=== PATIENT | male | born 1970 | race Caucasian/White ===

== ENCOUNTER 2020-08-05 10:09 | Inpatient (IN) ==
[2020-08-05] MEDS ORDERED: 0.9 % SODIUM CHLORIDE 1,000 ML IV ONE (10:15)
[2020-08-05] MEDS ORDERED: PIPERACILLIN SODIUM/TAZOBACTAM 3.375 GM in DEXTROSE 5% IN WATER 50 ML IV ONE (11:12)
[2020-08-05 11:36] LABS: Basophils # (Auto) 0.02 K/mcL (0.00-0.30); Basophils % (Auto) 0.1 % (0.0-2.0); Eosinophils # (Auto) 0.01 K/mcL (0.00-0.70); Eosinophils % (Auto) 0.1 % (0.0-7.0); Granulocytes % (Auto) 92.1 % (38.0-78.0); Hematocrit 31.4 % (40.1-51.0); Lymphocytes # (Auto) 0.88 K/mcL (1.50-4.80); Lymphocytes % (Auto) 4.5 % (15.5-49.0); Mean Cell Volume 84.9 fL (80.0-100.0); Mean Corpuscular HGB Conc 28.7 g/dL (31.0-36.0); Mean Platelet Volume 9.9 fL (7.4-10.4); Monocytes # (Auto) 0.62 K/mcL (0.10-0.90); Monocytes % (Auto) 3.2 % (1.0-12.0); Platelet Count 511 K/mcL (140-440); Red Cell Distribution Width 19.4 % (11.5-14.5); WBC 19.6 K/mcL (4.50-11.00)
--- NOTE | 2020-08-05 11:36 | Cat Scan Report ---
CLINICAL INFORMATION: ,. History metastatic renal cell carcinoma craniotomy resected solitary metastasis the posterior left parietal lobe. COMPARISON: None. TECHNIQUE: 2.5 mm helical slices were obtained in the skull base to vertex. Following reconstruction, axial reformatted images were reviewed at bone and parenchymal windows. The exam was performed using radiation dose optimization techniques including, but not limited to, automated exposure control, adjustment of the mA and/or kV according to patient size and use of iterative reconstruction technique. FINDINGS: The ventricles, sulci, fissures, and cisterns are normal in size and configuration for age. No extra-axial fluid collections are identified. Left parietal craniotomy changes noted with a 4 cm low-attenuation region in the left parietal lobe. On the basis of noncontrast imaging, this could represent either encephalomalacia or edema. There is no intracerebral hemorrhage, mass effect edema or other acute posttraumatic change. Bone windows show no osseous abnormality. IMPRESSION: Left frontal craniotomy changes with a 4 cm low-attenuation region in the left parietal region presumably representing postsurgical encephalomalacia. There is no intracerebral hemorrhage or other acute posttraumatic change. If there is concern for recurrent cerebral metastases, suggest contrast enhanced head CT. Interpreted and Authenticated by: Norman Torres 08/05/20
--- NOTE | 2020-08-05 11:36 | Emergency Department Note ---
Fall HPI General Chief Complaint: Fall Stated Complaint: Fall, hit head Time Seen by Provider: 08/05/20 10:15 Source: patient and family Mode of arrival: wheelchair Limitations: altered mental status (confusion at times. Has a hard time finishing thoughts) History of Present Illness HPI Narrative: Narrative: 49-year-old male presents with general weakness, and confusion. He was seen here last night. He is a stage IV kidney cancer patient and has a team of providers at the cancer treatment Center [facility] in [place]. They sent him to the ER due to dehydration when his creatinine and BUN were elevated last night. Family also notes he is had progressing fusion over the last couple of weeks. He did have a brain tumor that was removed back on November 122018. He once in a while has some confusion but nothing like he has had in the last couple weeks and mom is with him and states confusion seems to be much worse the last 24 hours and especially this morning. He was evaluated and treated last night for dehydration. He was feeling better but when he got home he went to get up to go the bathroom and he is not sure if he got dizzy or what happened but he fell. He did hit his head but did not lose consciousness. He denies any headache now. No neck or back pain. States he does generally feel weak and when he gets up to go to the bathroom or do something his leg shakes bad, especially the left one. He states this is not new and has been going on for a long time. Mom feels like something is going on due to the increased confusion and increased weakness. Labs were reviewed from last night. No home treatments. Related Data Home Medications Medication Instructions Recorded Confirmed coenzyme Q10 100 mg capsule 100 mg PO QDAY 12/31/19 08/04/20 gabapentin 300 mg capsule 300 mg PO QHS 12/31/19 08/04/20 hydromorphone 4 mg tablet 4 mg PO Q6H PRN 12/31/19 08/04/20 methocarbamol 750 mg tablet 750 mg PO TID 12/31/19 08/04/20 rivaroxaban 20 mg tablet 20 mg PO QDAY 12/31/19 08/04/20 axitinib 5 mg tablet 5 mg PO BID tab 07/08/20 08/04/20 escitalopram oxalate 5 mg tablet 5 mg PO QDAY tab 07/08/20 08/04/20 omeprazole 20 mg capsule,delayed 20 mg PO QDAY cap 07/08/20 08/04/20 release Previous Rx's Medication Instructions Recorded metformin 500 mg tablet,extended 500 mg PO BID #180 tab 12/31/19 release 24 hr sitagliptin 100 mg tablet 100 mg PO QDAY #90 tab 06/18/20 Allergies Allergy/AdvReac Type Severity Reaction Status Date / Time No Known Drug Allergies Allergy Verified 08/05/20 10:09 Review of Systems ROS ROS Narrative: Narrative: All systems ED: reviewed and negative except as stated. PFSH Narrative Patient History Narrative: Narrative: Medical/Surgical/Family History All Active Problems (Updated 08/05/20 @ 12:24 by MECHELLE Irwin) Hypercalcemia of malignancy (Acute) Dehydration (Acute) Light-headedness (Acute) Nausea and vomiting (Acute) Acute pneumonia (Acute) Confusion (Acute) Cancer of kidney (Acute) Generalized weakness (Acute) Renal cell carcinoma (Acute) Chest pain in adult (Acute) Attempted suicide (Chronic) Dyslipidemia (Chronic) Nicotine dependence (Chronic) Blood in urine (Chronic) Shortness of breath (Chronic) Hemoptysis (Chronic) Hypercalcemia (Chronic) Microalbuminuria (Chronic) Diabetic peripheral neuropathy (Chronic) Venous obstruction (Chronic) Lung mass (Chronic) Abdominal pain (Chronic) Hand tingling (Chronic) Neck pain (Chronic) Other benign neoplasm of skin of trunk (Chronic) Lentigo (Chronic) Seborrheic keratosis (Chronic) Skin tag (Chronic) Urinary urgency (Chronic) Leg pain, right (Chronic) Contusion of right thigh (Chronic) Metastatic renal cell carcinoma (Chronic) Gross hematuria (Chronic) 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) Nodule of upper lobe of right lung (Chronic) Splenomegaly (Chronic) Hydronephrosis of right kidney (Chronic) Adrenal nodule (Chronic) Nodule of lower lobe of left lung (Chronic) Right renal mass (Chronic 06/19/18) Hearing loss in right ear (Chronic) Heartburn (Chronic) Obesity, morbid (Chronic) Hearing loss (Chronic) Essential hypertension, benign (Chronic) Hyperlipidemia (Chronic) Moderate major depression (Chronic) Other testicular hypofunction (Chronic) Pulmonary embolism (Chronic) Nasal congestion (Chronic) Nasal polyp (Chronic) Eustachian tube disorder (Chronic) Nasal septal perforation (Chronic) Vasomotor rhinitis (Chronic) Diabetes mellitus type II, uncontrolled (Chronic) Metastatic renal cell carcinoma to brain (Chronic) Metastatic renal cell carcinoma to lung (Chronic) Cancer treatment started (Chronic ~06/2018) Type 2 diabetes mellitus (Chronic ~2009) Renal cell carcinoma (Chronic ~06/2018) Medical History Abdominal pain (Chronic) Adrenal nodule (Chronic) Left 1.6cm with retroperitoneal adenopathy Attempted suicide (Chronic) Blood in urine (Chronic) Cancer treatment started (Chronic ~06/2018) Contusion of right thigh (Chronic) Diabetes mellitus type II, uncontrolled (Chronic) Diabetic peripheral neuropathy (Chronic) Dyslipidemia (Chronic) Essential hypertension, benign (Chronic) Eustachian tube disorder (Chronic) Gross hematuria (Chronic) Hand tingling (Chronic) Hearing loss (Chronic) Hearing loss in right ear (Chronic) Heartburn (Chronic) Hemoptysis (Chronic) Hydronephrosis of right kidney (Chronic) Hypercalcemia (Chronic) Hyperlipidemia (Chronic) Leg pain, right (Chronic) Lentigo (Chronic) Lung mass (Chronic) Metastatic renal cell carcinoma (Chronic) Microalbuminuria (Chronic) Moderate major depression (Chronic) Nasal congestion (Chronic) Nasal polyp (Chronic) Nasal septal perforation (Chronic) Neck pain (Chronic) Nicotine dependence (Chronic) Nodule of lower lobe of left lung (Chronic) 2 Nodule of upper lobe of right lung (Chronic) Obesity, morbid (Chronic) Other benign neoplasm of skin of trunk (Chronic) Other testicular hypofunction (Chronic) Pulmonary embolism (Chronic) Renal cell carcinoma (Chronic ~06/2018) Right renal mass (Chronic 06/19/18) Very large right sided renal mas, 15 x 12 x 13 cm Seborrheic keratosis (Chronic) Shortness of breath (Chronic) Skin tag (Chronic) Splenomegaly (Chronic) 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) Type 2 diabetes mellitus (Chronic ~2009) Urinary urgency (Chronic) Vasomotor rhinitis (Chronic) Venous obstruction (Chronic) Surgical History History of brain surgery (Chronic ~10/2019) for tumor History of lung biopsy (Chronic ~06/2018) History of oral surgery (Chronic) Impacted tooth removal History of placement of ear tubes (Chronic) History of surgical procedure (Chronic ~09/2019) Power Port Placement History of toe surgery (Chronic) Right great toe ingrown toenail-biopsy Family History Father Cancer High blood pressure Emphysema, unspecified Bladder cancer Obesity Family/Other Cancer All Grandparents Diabetes Maternal cousin Mother High blood pressure Grandmother Ovarian cancer Paternal Stomach cancer Paternal Diabetes Maternal great great Grandfather Bone cancer Paternal Brain cancer Maternal Esophageal cancer Maternal Other Family history of malignant neoplasm of prostate Social History Smoking Status: Current every day smoker Alcohol Intake Frequency: does not drink Substance Use: does not use Exam Narrative Narrative: Narrative: General Limitations: altered mental status (confusion at times. Has a hard time finishing thoughts) General appearance: Present alert and other (Pale) Head Head: Present atraumatic and normocephalic Eye Eye: Present normal appearance and PERRL; Absent conjunctival injection ENT ENT: Present mucous membranes moist (Slightly dry), TM's normal bilaterally and normal external ear exam Neck Neck: Present normal inspection, full ROM and trachea midline; Absent tenderness Chest Chest: Present symmetric chest wall rise Respiratory Respiratory: Present normal lung sounds bilaterally and decreased breath sounds (Slightly diminished in bases bilaterally otherwise clear throughout); Absent respiratory distress, rales/crackles, wheezes, stridor and accessory muscle use Cardiovascular Cardiovascular: Present regular rate and normal heart sounds Adbominal Abdominal: Present soft and normal bowel sounds; Absent distention and tenderness Neurological Neurological: Present alert and oriented X3 (He is alert and oriented x3 however he does get confused at times and has a hard time finishing thoughts or senten virgen frequently. Mom states this is not unusual however it is much worse than the his baseline in the last 24 hours) Psychiatric Psychiatric: Present normal affect and normal mood Skin Skin: Present warm (WNL), intact and other (Pale) Course Course Course Narrative: @ 1310, Dr. Jernigan, hospitalist, agrees to accept this patient. Vital Signs Vital signs: Vital Signs Temperature 97.5 F 08/05/20 10:10 Pulse Rate 83 08/05/20 10:10 Respiratory Rate 15 08/05/20 10:10 Blood Pressure 119/75 08/05/20 10:10 Pulse Oximetry (%) 99 08/05/20 10:10 Temperature 97.5 F 08/05/20 10:10 Pulse Rate 80 08/05/20 13:31 Respiratory Rate 24 H 08/05/20 13:31 Blood Pressure 118/71 08/05/20 13:31 Pulse Oximetry (%) 96 08/05/20 13:31 MDM MDM Narrative Medical decision making narrative: Narrative: He did have elevated white blood cell count of greater than 14,000. Procalcitonin of 1.29. Radiologist read the chest x-ray this morning and see some small infiltrates in the left and going to hydrate the patient and recheck labs but in the meantime we are to start some IV antibiotics. He does have increasing weakness with the elevated white count, elevated procalcitonin, and increasing weakness and confusion. Also ordered a head CT due to the increased confusion that is progressing and much worse over the last 24 hours in addition to the fall with striking his head. He denies being on any blood thinners. I also do have a call into the cancer treatment centers of [facility] to his care team. At 1220, I did speak with the patient's care team at [facility] in [place]. His assigned provider is Dr. Watts [phone]. Discussed the case with him, he agrees with current plan of care with IV antibiotics for pneumonia and treatment here for what is going on currently. He does state that the p atient is supposed to have a CT of the chest abdomen and pelvis without contrast as well as a brain MRI with and without contrast within the next 2 weeks prior to coming to them again for a follow-up. He does have a history of mets to the brain. States they were doing these for restaging and further plan of treatment. At 1220 we did put in a bed request here for admission for pneumonia, confusion, weakness, stage IV kidney cancer with metastasis to the brain. PT is a DNR and does not want CPR performed if heart stopped or he stopped breathing. He does want all treatment to prolong life as far as treatment and interventions for infection, cancer, etc. Lab Data Lab results reviewed: Yes I reviewed the patient's lab results. Result diagrams: 08/05/20 10:58 08/05/20 10:58 Labs: Lab Results 08/05/20 08/05/20 08/05/20 Range/Units 10:58 10:58 10:58 WBC 19.6 H (4.50-11.00) K/mcL RBC 3.70 L (4.63-6.08) M/mcL Hgb 9.0 L (13.7-17.5) g/dL Hct 31.4 L (40.1-51.0) % MCV 84.9 (80.0-100.0) fL MCH 24.3 L (26.0-34.0) pg MCHC 28.7 L (31.0-36.0) g/dL RDW 19.4 H (11.5-14.5) % Plt Count 511 H (140-440) K/mcL MPV 9.9 (7.4-10.4) fL Gran % 92.1 H (38.0-78.0) % Lymph % (Auto) 4.5 L (15.5-49.0) % [place] % (Auto) 3.2 (1.0-12.0) % Eos % (Auto) 0.1 (0.0-7.0) % Baso % (Auto) 0.1 (0.0-2.0) % Gran # 18.11 H (1.80-8.00) K/mcL Lymph # (Auto) 0.88 L (1.50-4.80) K/mcL [place] # (Auto) 0.62 (0.10-0.90) K/mcL Eos # (Auto) 0.01 (0.00-0.70) K/mcL Baso # (Auto) 0.02 (0.00-0.30) K/mcL VBG Lactic Acid (0.5-2.0) mmol/L Sodium 134 (133-145) mmol/L Potassium 4.4 (3.3-5.1) mmol/L Chloride 98 (96-108) mmol/L Carbon Dioxide 22 (22-30) mmol/L Anion Gap 14.0 (8-16) BUN 19 (6-20) mg/dl Creatinine 1.8 H (0.7-1.2) mg/dl GFR Calculation 43 Glucose 180 H (70-105) mg/dL Calcium 12.4 H (8.6-10.4) mg/dl Phosphorus 3.5 (2.7-4.5) mg/dL Magnesium 2.5 (1.6-2.5) mg/dL Total Bilirubin 0.4 (0.0-1.0) mg/dL AST 16 (0-37) U/l ALT 10 (0-40) U/l Alkaline Phosphatase 157 H (39-117) U/L Total Protein 7.5 (5.9-8.4) gm/dL Albumin 2.8 L (3.2-5.2) gm/dL Globulin 4.7 H (2.2-3.7) gm/dL Albumin/Globulin Ratio 0.6 L (1.0-2.3) Procalcitonin 1.06 (<0.10) ng/mL 08/05/20 Range/Units 11:33 WBC (4.50-11.00) K/mcL RBC (4.63-6.08) M/mcL Hgb (13.7-17.5) g/dL Hct (40.1-51.0) % MCV (80.0-100.0) fL MCH (26.0-34.0) pg MCHC (31.0-36.0) g/dL RDW (11.5-14.5) % Plt Count (140-440) K/mcL MPV (7.4-10.4) fL Gran % (38.0-78.0) % Lymph % (Auto) (15.5-49.0) % [place] % (Auto) (1.0-12.0) % Eos % (Auto) (0.0-7.0) % Baso % (Auto) (0.0-2.0) % Gran # (1.80-8.00) K/mcL Lymph # (Auto) (1.50-4.80) K/mcL [place] # (Auto) (0.10-0.90) K/mcL Eos # (Auto) (0.00-0.70) K/mcL Baso # (Auto) (0.00-0.30) K/mcL VBG Lactic Acid 2.0 (0.5-2.0) mmol/L Sodium (133-145) mmol/L Potassium (3.3-5.1) mmol/L Chloride (96-108) mmol/L Carbon Dioxide (22-30) mmol/L Anion Gap (8-16) BUN (6-20) mg/dl Creatinine (0.7-1.2) mg/dl GFR Calculation Glucose (70-105) mg/dL Calcium (8.6-10.4) mg/dl Phosphorus (2.7-4.5) mg/dL Magnesium (1.6-2.5) mg/dL Total Bilirubin (0.0-1.0) mg/dL AST (0-37) U/l ALT (0-40) U/l Alkaline Phosphatase (39-117) U/L Total Protein (5.9-8.4) gm/dL Albumin (3.2-5.2) gm/dL Globulin (2.2-3.7) gm/dL Albumin/Globulin Ratio (1.0-2.3) Procalcitonin (<0.10) ng/mL Radiology Data Radiology results reviewed: Yes I reviewed the patient's radiology results. Discharge Plan Patient/Caregiver Discharge Instructions Pt seen by MONOGRAM TECHNICIAN/PA only: Yes Clinical Impression: Acute pneumonia, Confusion, Cancer of kidney, Generalized weakness Patient Disposition: Xfer As Inpt ([facility]) Condition: Fair Follow up with: Norman Kaiser DO [Primary Care Provider] - Prescriptions: No Action Januvia 100 mg tablet 100 mg PO QDAY Qty: 90 RF: 0 hydromorphone 4 mg tablet 4 mg PO Q6H PRN (Reason: Pain) RF: 0 methocarbamol 750 mg tablet 750 mg PO TID RF: 0 coenzyme Q10 100 mg capsule 100 mg PO QDAY RF: 0 gabapentin 300 mg capsule 300 mg PO QHS RF: 0 Xarelto 20 mg tablet 20 mg PO QDAY RF: 0 metformin 500 mg tablet extended release 24 hr 500 mg PO BID Qty: 180 RF: 3 Inlyta 5 mg tablet 5 mg PO BID RF: 0 omeprazole 20 mg capsule,delayed release(DR/EC) 20 mg PO QDAY RF: 0 escitalopram oxalate 5 mg tablet 5 mg PO QDAY RF: 0
[2020-08-05 11:57] LABS: ALT/SGPT 10 U/l (0-40); AST/SGOT 16 U/l (0-37); Albumin 2.8 gm/dL (3.2-5.2); Albumin/Globulin Ratio 0.6 (1.0-2.3); Alkaline Phosphatase 157 U/L (39-117); Bilirubin,Total 0.4 mg/dL (0.0-1.0); Blood Urea Nitrogen 19 mg/dl (6-20); Calcium 12.4 mg/dl (8.6-10.4); Carbon Dioxide 22 mmol/L (22-30); Chloride 98 mmol/L (96-108); Globulin 4.7 gm/dL (2.2-3.7); Glomerular Filtration Rate 43; Glucose 180 mg/dL (70-105); Phosphorous 3.5 mg/dL (2.7-4.5)
--- NOTE | 2020-08-05 13:28 | Internal Med History&Physical ---
HPI History of Present Illness Patient information: Note initiated : 08/05/20 at 1:19 pm Service Date, if different from initiated Date: [] Patient: Timi Amaral 49 y/o M admitted on for Fall, hit head. Chief Complaint: [] History of present illness: Mr. Amaral is a 49 year Who presented ED yesterday at the request of his cancer care center due to some labs that appear to show him being dehydrated. Went to the ED and received IV fluid. Was sent home. During middle night he went to go the bathroom and felt dizzy and lightheaded and fell. He denies loss of consciousness although he did hit his head. Was able to get up right away and get went to his bed. He and family called the cancer center in the morning they told to come to the ED. On evaluation the ED appear to be in acute kidney injury. And chest x-ray showed left lower lobe infiltrate. Lactate 2.0. An elevated white blood cell count. As well as procalcitonin. Does have a history of stage IV kidney cancer with mets to the brain. Had a brain surgery in October. Has not been on a recent chemo medication and is not felt well since then. He has had days where he is felt confused. Per family members and himself he was confused this morning. Seems to be cleared up at this time. This post to get follow-up CT chest abdomen pelvis and brain MRI in the next couple weeks prior to his appointment. Denies any coughing or shortness of breath at this time. Yesterday he felt normal although again has not felt great since the medication but no acute changes in how he fell yesterday as well as today. Just feels lightheaded if he gets up too fast. No headaches or vision changes. Review of Systems: Pertinent positives as above. Denies headache/fever/chills/nausea/vomiting/chest or abdominal pain/cough/dyspnea/diarrhea. Remaining 10 point review of system reviewed negative PFSH PFSH All Active Problems (Updated 08/05/20 @ 12:24 by MECHELLE Irwin) Hypercalcemia of malignancy (Acute) Dehydration (Acute) Light-headedness (Acute) Nausea and vomiting (Acute) Acute pneumonia (Acute) Confusion (Acute) Cancer of kidney (Acute) Generalized weakness (Acute) Renal cell carcinoma (Acute) Chest pain in adult (Acute) Attempted suicide (Chronic) Dyslipidemia (Chronic) Nicotine dependence (Chronic) Blood in urine (Chronic) Shortness of breath (Chronic) Hemoptysis (Chronic) Hypercalcemia (Chronic) Microalbuminuria (Chronic) Diabetic peripheral neuropathy (Chronic) Venous obstruction (Chronic) Lung mass (Chronic) Abdominal pain (Chronic) Hand tingling (Chronic) Neck pain (Chronic) Other benign neoplasm of skin of trunk (Chronic) Lentigo (Chronic) Seborrheic keratosis (Chronic) Skin tag (Chronic) Urinary urgency (Chronic) Leg pain, right (Chronic) Contusion of right thigh (Chronic) Metastatic renal cell carcinoma (Chronic) Gross hematuria (Chronic) 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) Nodule of upper lobe of right lung (Chronic) Splenomegaly (Chronic) Hydronephrosis of right kidney (Chronic) Adrenal nodule (Chronic) Nodule of lower lobe of left lung (Chronic) Right renal mass (Chronic 06/19/18) Hearing loss in right ear (Chronic) Heartburn (Chronic) Obesity, morbid (Chronic) Hearing loss (Chronic) Essential hypertension, benign (Chronic) Hyperlipidemia (Chronic) Moderate major depression (Chronic) Other testicular hypofunction (Chronic) Pulmonary embolism (Chronic) Nasal congestion (Chronic) Nasal polyp (Chronic) Eustachian tube disorder (Chronic) Nasal septal perforation (Chronic) Vasomotor rhinitis (Chronic) Diabetes mellitus type II, uncontrolled (Chronic) Metastatic renal cell carcinoma to brain (Chronic) Metastatic renal cell carcinoma to lung (Chronic) Cancer treatment started (Chronic ~06/2018) Type 2 diabetes mellitus (Chronic ~2009) Renal cell carcinoma (Chronic ~06/2018) Medical History Abdominal pain (Chronic) Adrenal nodule (Chronic) Left 1.6cm with retroperitoneal adenopathy Attempted suicide (Chronic) Blood in urine (Chronic) Cancer treatment started (Chronic ~06/2018) Contusion of right thigh (Chronic) Diabetes mellitus type II, uncontrolled (Chronic) Diabetic peripheral neuropathy (Chronic) Dyslipidemia (Chronic) Essential hypertension, benign (Chronic) Eustachian tube disorder (Chronic) Gross hematuria (Chronic) Hand tingling (Chronic) Hearing loss (Chronic) Hearing loss in right ear (Chronic) Heartburn (Chronic) Hemoptysis (Chronic) Hydronephrosis of right kidney (Chronic) Hypercalcemia (Chronic) Hyperlipidemia (Chronic) Leg pain, right (Chronic) Lentigo (Chronic) Lung mass (Chronic) Metastatic renal cell carcinoma (Chronic) Microalbuminuria (Chronic) Moderate major depression (Chronic) Nasal congestion (Chronic) Nasal polyp (Chronic) Nasal septal perforation (Chronic) Neck pain (Chronic) Nicotine dependence (Chronic) Nodule of lower lobe of left lung (Chronic) 2 Nodule of upper lobe of right lung (Chronic) Obesity, morbid (Chronic) Other benign neoplasm of skin of trunk (Chronic) Other testicular hypofunction (Chronic) Pulmonary embolism (Chronic) Renal cell carcinoma (Chronic ~06/2018) Right renal mass (Chronic 06/19/18) Very large right sided renal mas, 15 x 12 x 13 cm Seborrheic keratosis (Chronic) Shortness of breath (Chronic) Skin tag (Chronic) Splenomegaly (Chronic) 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) Type 2 diabetes mellitus (Chronic ~2009) Urinary urgency (Chronic) Vasomotor rhinitis (Chronic) Venous obstruction (Chronic) Surgical History History of brain surgery (Chronic ~10/2019) for tumor History of lung biopsy (Chronic ~06/2018) History of oral surgery (Chronic) Impacted tooth removal History of placement of ear tubes (Chronic) History of surgical procedure (Chronic ~09/2019) Power Port Placement History of toe surgery (Chronic) Right great toe ingrown toenail-biopsy Family History Father Cancer High blood pressure Emphysema, unspecified Bladder cancer Obesity Family/Other Cancer All Grandparents Diabetes Maternal cousin Mother High blood pressure Grandmother Ovarian cancer Paternal Stomach cancer Paternal Diabetes Maternal great great Grandfather Bone cancer Paternal Brain cancer Maternal Esophageal cancer Maternal Other Family history of malignant neoplasm of prostate Social History marital status: single smoking status: Current every day smoker alcohol intake frequency: does not drink substance use type: does not use MEDS/ALLERGIES Home Medications and Allergies Home Medications Medication Instructions Recorded Confirmed Type coenzyme Q10 100 mg capsule 100 mg PO QDAY 12/31/19 08/05/20 History gabapentin 300 mg capsule 300 mg PO QHS 12/31/19 08/05/20 History hydromorphone 4 mg tablet 4 mg PO Q6H PRN 12/31/19 08/05/20 History metformin 500 mg tablet,extended 500 mg PO BID #180 tab 12/31/19 08/05/20 Rx release 24 hr methocarbamol 750 mg tablet 750 mg PO TID 12/31/19 08/05/20 History rivaroxaban 20 mg tablet 20 mg PO QDAY 12/31/19 08/05/20 History sitagliptin 100 mg tablet 100 mg PO QDAY #90 tab 06/18/20 08/05/20 Rx axitinib 5 mg tablet 5 mg PO BID tab 07/08/20 08/05/20 History escitalopram oxalate 5 mg tablet 5 mg PO QDAY tab 07/08/20 08/05/20 History omeprazole 20 mg capsule,delayed 20 mg PO QDAY cap 07/08/20 08/05/20 History release Allergies Allergy/AdvReac Type Severity Reaction Status Date / Time No Known Drug Allergies Allergy Verified 08/05/20 10:09 EXAM Constitutional Vitals: Temp Pulse Resp BP Pulse Ox 97.5 F 80 25 H 110/72 96 08/05/20 10:10 08/05/20 12:46 08/05/20 12:46 08/05/20 12:46 08/05/20 12:46 Exam: General: Alert, Awake, No acute Distress Eyes/N/T: EOMI, PERRL, dry MM Head/Neck: neck supple, normocephalic atraumatic CV: RRR, No murmurs, normal s1/s2 Pulm: Mild left-sided rhonchi right clear , no wheezing Abd: soft, nontender, +BS x4 Ext: no clubbing/cyanosis/edema Neuro: Alert, no focal deficits, moves all extremities, CN 2-12 grossly intact, symmetrical strength b/l upper/lower, sensations intact b/l upper/lower Skin: warm/dry DATA Data Completed and Pending Labs: Labs from last 24 hours 08/05/20 08/05/20 08/05/20 11:33 10:58 10:58 WBC RBC Hgb Hct MCV MCH MCHC RDW Plt Count MPV Gran % Lymph % (Auto) [place] % (Auto) Eos % (Auto) Baso % (Auto) Gran # Lymph # (Auto) [place] # (Auto) Eos # (Auto) Baso # (Auto) VBG Lactic Acid 2.0 Sodium 134 Potassium 4.4 Chloride 98 Carbon Dioxide 22 Anion Gap 14.0 BUN 19 Creatinine 1.8 H GFR Calculation 43 Glucose 180 H Calcium 12.4 H Phosphorus 3.5 Magnesium 2.5 Total Bilirubin 0.4 AST 16 ALT 10 Alkaline Phosphatase 157 H Total Protein 7.5 Albumin 2.8 L Globulin 4.7 H Albumin/Globulin Ratio 0.6 L Procalcitonin 1.06 08/05/20 10:58 WBC 19.6 H RBC 3.70 L Hgb 9.0 L Hct 31.4 L MCV 84.9 MCH 24.3 L MCHC 28.7 L RDW 19.4 H Plt Count 511 H MPV 9.9 Gran % 92.1 H Lymph % (Auto) 4.5 L [place] % (Auto) 3.2 Eos % (Auto) 0.1 Baso % (Auto) 0.1 Gran # 18.11 H Lymph # (Auto) 0.88 L [place] # (Auto) 0.62 Eos # (Auto) 0.01 Baso # (Auto) 0.02 VBG Lactic Acid Sodium Potassium Chloride Carbon Dioxide Anion Gap BUN Creatinine GFR Calculation Glucose Calcium Phosphorus Magnesium Total Bilirubin AST ALT Alkaline Phosphatase Total Protein Albumin Globulin Albumin/Globulin Ratio Procalcitonin A/P Narrative A/P Narrative: A: *ABIOLA on CKD III: *PNA: -on room air *Volume depletion: *Hypercalcemia: volume depletion vs metastatic CA *Kidney cancer stage IV with mets to the brain: *Anemia, chronic: *Depression: *GERD: *Tobacco abuse: *DM: *Confusion: Intermittent -noncontrast CT brain no acute * P: -IVF -Monitor UOP and follow-up renal function and calcium -Pending BC/SC -UA pending -IV antibiotics -MRI brain to assess for brain mets -is supposed to get f/u ct c/a/p prior to appointment -SSI, hold metformin -PT/OT -Smoking cessation counseling -ppx: Lovenox/home PPI DNR Time Spent With Patient Time: Total time spent is greater than 50% in coordination of care (as documented) at patient's floor/unit and/or counseling patient:
[2020-08-05 15:21] LABS: Anisocytosis 1+ (NONE SEEN); Hypochromasia 2+ (NONE SEEN); Lymphocytes % 6 % (15-49); Monocytes % (Manual) 2 % (1-12); Platelet Estimate INCREASED (NORMAL); RBC Morphology ABNORMAL (NORMAL); Segmented Neutrophils % 92 % (38-78)
[2020-08-05] MEDS ORDERED: ACETAMINOPHEN 325 MG TABLET PO PRN (15:37)
[2020-08-05] MEDS ORDERED: DEXTROSE 31 GM ORAL.SUSP PO PRN (15:37)
[2020-08-05] MEDS ORDERED: POTASSIUM CHLORIDE 20 MEQ TABLET PO PRN ×2 (15:37)
[2020-08-05] MEDS ORDERED: DEXTROSE 50% 50 ML VIAL IV PRN (15:37)
[2020-08-05] MEDS ORDERED: IPRATROPIUM/ALBUTEROL 3 ML AMPUL.NEB NEB PRN (15:37)
[2020-08-05] MEDS ORDERED: POLYETHYLENE GLYCOL 3350 17 GM PACKET PO PRN (15:37)
[2020-08-05] MEDS ORDERED: SENNOSIDES 1 TABLET PO PRN (15:37)
[2020-08-05] MEDS ORDERED: MAGNESIUM SULFATE 2 GM/50 ML BAG IV PRN (15:37)
[2020-08-05] MEDS ORDERED: POTASSIUM CHLORIDE 40 MEQ in DEXTROSE 5% IN WATER 500 ML IV PRN (15:37)
[2020-08-05] MEDS ORDERED: METOCLOPRAMIDE 10 MG/2 ML VIAL IV PRN (15:37)
[2020-08-05] MEDS: 0.9 % SODIUM CHLORIDE 10 ML SYRINGE IV SCH ×2 (16:44→21:55)
[2020-08-05] MEDS: 0.9 % SODIUM CHLORIDE 1,000 ML IV SCH (16:44)
[2020-08-05] MEDS: INSULIN LISPRO 1 UNIT/0.01 ML UNIT SQ SCH ×2 (16:52→21:53)
[2020-08-05] MEDS: PIPERACILLIN SODIUM/TAZOBACTAM 3.375 GM in DEXTROSE 5% IN WATER 50 ML IV SCH (18:39)
[2020-08-05] MEDS: HYDROmorphone 2 MG TABLET PO PRN (21:54)
[2020-08-05] MEDS: DOCUSATE SODIUM 100 MG CAPSULE PO SCH (21:55)
[2020-08-05] MEDS: ONDANSETRON 4 MG/2 ML VIAL IV PRN (22:04)
[2020-08-06] MEDS: PIPERACILLIN SODIUM/TAZOBACTAM 3.375 GM in DEXTROSE 5% IN WATER 50 ML IV SCH ×5 (00:03→23:53)
[2020-08-06] MEDS: HYDROmorphone 2 MG TABLET PO PRN ×4 (04:38→23:53)
[2020-08-06] MEDS: 0.9 % SODIUM CHLORIDE 10 ML SYRINGE IV SCH ×3 (04:40→20:17)
[2020-08-06] MEDS: 0.9 % SODIUM CHLORIDE 1,000 ML IV SCH (04:40)
--- NOTE | 2020-08-06 07:11 | Internal Med Progress Note ---
SUBJECTIVE Subjective Patient information: Note initiated : 08/06/20 at 7:09 am Service Date, if different from initiated Date: [] Patient: Timi Amaral 49 y/o M admitted on 08/05/20 for Fall, hit head. Chief Complaint: [] Interval history: Leukocytosis improved.History of present illness: Mr. Amaral is a 49 year Who presented ED yesterday at the request of his cancer care center due to some labs that appear to show him being dehydrated. Went to the ED and received IV fluid. Was sent home. During middle night he went to go the bathroom and felt dizzy and lightheaded and fell. He denies loss of consciousness although he did hit his head. Was able to get up right away and get went to his bed. He and family called the cancer center in the morning they told to come to the ED. On evaluation the ED appear to be in acute kidney injury. And chest x-ray showed left lower lobe infiltrate. Lactate 2.0. An elevated white blood cell count. As well as procalcitonin. Does have a history of stage IV kidney cancer with mets to the brain. Had a brain surgery in October. Has not been on a recent chemo medication and is not felt well since then. He has had days where he is felt confused. Per family members and himself he was confused this morning. Seems to be cleared up at this time. This post to get follow-up CT chest abdomen pelvis and brain MRI in the next couple weeks prior to his appointment. Denies any coughing or shortness of breath at this time. Yesterday he felt normal although again has not felt great since the medication but no acute changes in how he fell yesterday as well as today. Just feels lightheaded if he gets up too fast. No headaches or vision changes. 08/06 Feeling a little better today. Has little bit of lower abdominal crampy pain but otherwise no complaints. Leukocytosis improved. Review of Systems: denies headache/fever/chills/nausea/vomiting/chest or abdominal pain/cough/dyspnea/diarrhea. Otherwise see above. Constitutional Vitals: Vital Signs Temp Pulse Resp BP Pulse Ox 97.9 F 73 20 122/76 98 08/06/20 04:33 08/06/20 04:33 08/06/20 04:33 08/06/20 04:33 08/06/20 04:33 Period Temp Pulse Resp BP Sys/Bah Pulse Ox Last 24 Hr 97.2 F-98.2 F 73-90 9-28 95-122/63-94 93-99 Intake and Output 08/05/20 08/06/20 08/06/20 21:59 05:59 13:59 Intake Total 50 1295 Output Total 1125 1025 Balance -1075 270 Weight 120.202 kg Intake & Output: Intake & Output 08/05/20 08/06/20 08/06/20 21:59 05:59 13:59 Intake Total 50 1295 Output Total 1125 1025 Balance -1075 270 Weight 120.202 kg Intake: IV 50 995 Sodium Chloride 0.9% 1,000 ml @ 895 75 mls/hr IV .[id number] MELISSA Rx#: [id number] Zosyn 3.375 gm In Dextrose 5% 50 100 in Water 50 ml @ 100 mls/hr IV Q6H MELISSA Rx#:[id number] Oral 300 Output: Void Amount 1125 1025 Other: Meal Dinner Percent of Meal Consumed 50% Feeding Ability Independent Urine Appearance Clear Clear Urine Color Bright Yellow Bright Yellow Urine Odor Normal Exam: General: Alert, Awake, Eyes/N/T: EOMI, Head/Neck: neck supple, CV: RRR, No murmurs, Pulm: Mild left-sided rhonchi right clear , no wheezing Abd: soft, nontender, +BS x4 Ext: no clubbing/cyanosis/edema Neuro: Alert, no focal deficits, moves all extremities, Skin: warm/dry OBJ DATA Labs CBC & Chem 7: 08/06/20 05:19 08/05/20 10:58 Labs: Abnormal Lab Results 08/05/20 08/05/20 08/05/20 10:58 10:58 10:58 WBC 19.6 H RBC 3.70 L Hgb 9.0 L Hct 31.4 L MCH 24.3 L MCHC 28.7 L RDW 19.4 H Plt Count 511 H Gran % 92.1 H Lymph % (Auto) 4.5 L Gran # 18.11 H Lymph # (Auto) 0.88 L Seg Neutrophils % 92 H Lymphocytes % 6 L Platelet Estimate Increased A Hypochromasia 2+ A Anisocytosis 1+ A Creatinine 1.8 H Glucose 180 H Calcium 12.4 H Alkaline Phosphatase 157 H Albumin 2.8 L Globulin 4.7 H Albumin/Globulin Ratio 0.6 L Meds: Medications Acetaminophen (Tylenol) 650 mg PO Q6HP PRN PRN Reason: PAIN/FEVER > 101 Albuterol/Ipratropium (Duoneb) 3 ml NEB Q4HP PRN PRN Reason: Shortness Of Breath Dextrose (Dextrose 50%) 0 ml IV UD PRN PRN Reason: Hypoglycemia Diagnostic Test (Pha) (Accu-Chek) 1 each FS [facility] COUNTS INCLUDE 234 BEDS AT THE [facility] Last Admin: 08/05/20 21:53 Dose: 1 each Documented by: Docusate Sodium (Colace) 100 mg PO BID COUNTS INCLUDE 234 BEDS AT THE [facility] Last Admin: 08/05/20 21:55 Dose: 100 mg Documented by: Enoxaparin Sodium (Lovenox) 40 mg SQ DAILY COUNTS INCLUDE 234 BEDS AT THE [facility] Glucose (Insta-Glucose) 15 gm PO PRN PRN PRN Reason: Hypoglycemia Hydromorphone HCl (Dilaudid) 4 mg PO Q6HP PRN; Protocol PRN Reason: Per Pain Protocol Last Admin: 08/06/20 04:38 Dose: 4 mg Documented by: Potassium Chloride 40 meq/ (Dextrose) 520 mls @ 130 mls/hr IV UD PRN PRN Reason: Potassium < 3 Magnesium Sulfate (Magnesium Sulfate) 2 gm in 50 mls @ 50 mls/hr IV UD PRN PRN Reason: Magnesium </= 1.6 Sodium Chloride (Sodium Chloride 0.9%) 1,000 mls @ 75 mls/hr IV .[id number] COUNTS INCLUDE 234 BEDS AT THE [facility] Stop: 08/06/20 18:16 Last Admin: 08/06/20 04:40 Dose: 75 mls/hr Documented by: Piperacillin Sod/Tazobactam (Sod 3.375 gm/ Dextrose) 50 mls @ 100 mls/hr IV Q6H COUNTS INCLUDE 234 BEDS AT THE [facility]; Protocol Last Infusion: 08/06/20 05:08 Dose: Infused Documented by: Insulin Human Lispro (Humalog) 0 unit SQ [facility]; Protocol Last Admin: 08/05/20 21:53 Dose: 4 unit Documented by: Metoclopramide HCl (Reglan) 10 mg IV Q6HP PRN PRN Reason: Nausea And Vomiting Ondansetron HCl (Zofran) 4 mg IV Q4HP PRN PRN Reason: Nausea And Vomiting Last Admin: 08/05/20 22:04 Dose: 4 mg Documented by: Polyethylene Glycol (Miralax) 17 gm PO DAILYP PRN PRN Reason: Constipation Potassium Chloride (Kdur) 40 meq PO UD PRN PRN Reason: Potssium is 3-3.5 Potassium Chloride (Kdur) 40 meq PO UD PRN PRN Reason: Potassium < 3 Senna (Senokot) 2 tab PO DAILYP PRN PRN Reason: Constipation Sodium Chloride (Saline Flush) 10 ml IV Q8 MELISSA Last Admin: 08/06/20 04:40 Dose: Not Given Documented by: A/P Narrative A/P Narrative: A: *ABIOLA on CKD III: *PNA: -on room air *Volume depletion: *Hypercalcemia: volume depletion vs metastatic CA *Kidney cancer stage IV with mets to the brain: *Anemia, chronic: *Depression: *GERD: *Tobacco abuse: *DM: *Confusion: Intermittent -noncontrast CT brain no acute * P: -IVF -Monitor UOP and follow-up renal function and calcium -Pending BC/SC -UA pending -IV antibiotics -MRI brain to assess for brain mets given intermittent confusion per family -is supposed to get f/u ct c/a/p prior to appointment with cancer center -SSI, hold metformin -PT/OT -Smoking cessation counseling -ppx: Lovenox/home PPI DNR Time Spent With Patient Time: Total time spent is greater than 50% in coordination of care (as documented) at patient's floor/unit and/or counseling patient:
[2020-08-06 07:25] LABS: Hematocrit 28.5 % (40.1-51.0); Mean Cell Volume 86.1 fL (80.0-100.0); Mean Corpuscular HGB Conc 28.1 g/dL (31.0-36.0); Mean Platelet Volume 9.8 fL (7.4-10.4); Platelet Count 462 K/mcL (140-440); RBC 3.31 M/mcL (4.63-6.08); Red Cell Distribution Width 19.5 % (11.5-14.5)
[2020-08-06] MEDS: INSULIN LISPRO 1 UNIT/0.01 ML UNIT SQ SCH ×4 (07:25→20:16)
[2020-08-06] MEDS: ENOXAPARIN 40 MG/0.4 ML SYRINGE SQ SCH (07:28)
[2020-08-06 08:28] LABS: ALT/SGPT 9 U/l (0-40); AST/SGOT 18 U/l (0-37); Albumin 2.7 gm/dL (3.2-5.2); Albumin/Globulin Ratio 0.7 (1.0-2.3); Alkaline Phosphatase 133 U/L (39-117); Bilirubin,Total 0.3 mg/dL (0.0-1.0); Calcium 10.8 mg/dl (8.6-10.4); Carbon Dioxide 23 mmol/L (22-30); Chloride 102 mmol/L (96-108); Glomerular Filtration Rate 43; Glucose 120 mg/dL (70-105); Lactate Dehydrogenase 131 U/L (94-250); Phosphorous 2.8 mg/dL (2.7-4.5); Triglycerides 109 mg/dl (<150); Uric Acid 7.9 mg/dL (2.5-8.0)
[2020-08-06 08:29] LABS: Bilirubin,Direct < 0.2 mg/dL (0.0-0.3); Blood Urea Nitrogen 22 mg/dl (6-20)
[2020-08-06 08:46] LABS: Anisocytosis 1+ (NONE SEEN); Eosinophils % (Manual) 1 % (0-7); Hypochromasia 1+ (NONE SEEN); Lymphocytes % 6 % (15-49); Monocytes % (Manual) 7 % (1-12); Platelet Estimate INCREASED (NORMAL); RBC Morphology ABNORM (NORMAL); Segmented Neutrophils % 86 % (38-78)
[2020-08-06] MEDS: AXITINIB 5 MG PO SCH ×2 (09:09→21:39)
[2020-08-06] MEDS: OMEPRAZOLE 20 MG CAPSULE PO SCH (09:41)
[2020-08-06] MEDS: METHOCARBAMOL 750 MG TABLET PO SCH ×3 (09:41→20:16)
[2020-08-06] MEDS: DOCUSATE SODIUM 100 MG CAPSULE PO SCH ×2 (09:41→20:16)
[2020-08-06 10:12] LABS: Appearance,Urine CLEAR; Bilirubin,Urine NEG (NEG); Color,Urine YELLOW; Culture Indicated,Urine NO; Glucose,Urine (UA) NEGATIVE (NEG); Ketones,Urine NEG (NEG); Leukocyte Esterase,Urine NEG /uL (NEG); Nitrate,Urine NEG (NEG); Protein,Urine NEG (NEG); Specific Gravity,Urine 1.012 (1.000-1.035); Urine Blood NEG mg/dL (<0.03); Urobilinogen,Urine NEG (NEG)
--- NOTE | 2020-08-06 12:06 | Ultrasound Report ---
CLINICAL INFORMATION: dorina, h/o renal CA COMPARISON: Chest CT 05/23/2020 FINDINGS: A large mass infiltrating the entire right kidney spanning 20 x 14 cm. It impinges the proximal ureter resulting in mild right hydronephrosis. The mass demonstrates low impedance arterial blood flow on color Doppler and is suspicious for primary renal cell carcinoma. Left kidney is normal - 15 x 6 cm. Urinary bladder volume is 125 cc. patient cannot void. IMPRESSION: Large (20 cm) mass replacing the entire right kidney. It is suspicious for primary renal cell carcinoma. Left kidney and urinary bladder are normal Interpreted and Authenticated by: Norman Torres 08/06/20
--- NOTE | 2020-08-06 13:28 | Nephrology Consult Note ---
HPI Data of Consult Patient: new to practice Consult date: 08/06/20 Requesting physician: Newton Jernigan Primary Care Provider: Norman Kaiser DO Consult Narrative Patient Information: Note initiated : 08/06/20 at 1:27 pm Patient: Timi Amaral 49 y/o M admitted on 08/05/20 for Fall, hit head. Chief Complaint: Weakness Timi Ornelas is a 49-year-old male with diabetes mellitus type II, hypertension, history of metastatic renal cell carcinoma admitted on 08/05/20. Right renal cell carcinoma was initially diagnosed on 06/28/2018. It caused thrombosis of the inferior vena cava and the renal vein and metastatic to the brain and lung. He had brain surgery for partial resection on 11/12/2019. He received radiation treatment through 01/14/2020. He has been receiving chemotherapy from the [facility]. He was initially p laced on sunitinib followed by nivolumab/ipilimumab, cabozantinib then axitinib. The patient was sent to ED for dehydration on 08/04/20 from the cancer center and received IVF (1.5 L) and discharged home. He felt dizzy and lightheaded and fell at home and presented back to ED. His work up showed acute kidney injury, left lower lobe infiltrate with lactic acidosis, elevated white blood cell count and procalcitonin. He noticed bilateral leg edema in the past 2 weeks. cc:: CC: Newton Jernigan Constitutional Constitutional: Present lethargy and weakness Cardiovascular Cardiovascular: Present edema; Absent chest pain Respiratory Respiratory: Absent dyspnea and wheezing Gastrointestinal Gastrointestinal: Absent nausea and vomiting Genitourinary Genitourinary: dysuria and hematuria Musculoskeletal Musculoskeletal: Absent joint swelling Integumentary Integumentary: Absent rash and wounds Neurological Neurological: Present weakness; Absent confusion Psychiatric Psychiatric: Absent anxiety and panic attacks Hematologic/Lymphatic Hematologic/Lymphatic: Absent easy bleeding and easy bruising PFSH PFSH All Active Problems (Updated 08/06/20 @ 13:27 by Raj Oseguera MD) Acute on chronic renal failure (Acute) Hypercalcemia of malignancy (Acute) Dehydration (Acute) Light-headedness (Acute) Nausea and vomiting (Acute) Acute pneumonia (Acute) Confusion (Acute) Cancer of kidney (Acute) Generalized weakness (Acute) Renal cell carcinoma (Acute) Chest pain in adult (Acute) Attempted suicide (Chronic) Dyslipidemia (Chronic) Nicotine dependence (Chronic) Blood in urine (Chronic) Shortness of breath (Chronic) Hemoptysis (Chronic) Hypercalcemia (Chronic) Microalbuminuria (Chronic) Diabetic peripheral neuropathy (Chronic) Venous obstruction (Chronic) Lung mass (Chronic) Abdominal pain (Chronic) Hand tingling (Chronic) Neck pain (Chronic) Other benign neoplasm of skin of trunk (Chronic) Lentigo (Chronic) Seborrheic keratosis (Chronic) Skin tag (Chronic) Urinary urgency (Chronic) Leg pain, right (Chronic) Contusion of right thigh (Chronic) Metastatic renal cell carcinoma (Chronic) Gross hematuria (Chronic) 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) Nodule of upper lobe of right lung (Chronic) Splenomegaly (Chronic) Hydronephrosis of right kidney (Chronic) Adrenal nodule (Chronic) Nodule of lower lobe of left lung (Chronic) Right renal mass (Chronic 06/19/18) Hearing loss in right ear (Chronic) Heartburn (Chronic) Obesity, morbid (Chronic) Hearing loss (Chronic) Essential hypertension, benign (Chronic) Hyperlipidemia (Chronic) Moderate major depression (Chronic) Other testicular hypofunction (Chronic) Pulmonary embolism (Chronic) Nasal congestion (Chronic) Nasal polyp (Chronic) Eustachian tube disorder (Chronic) Nasal septal perforation (Chronic) Vasomotor rhinitis (Chronic) Diabetes mellitus type II, uncontrolled (Chronic) Metastatic renal cell carcinoma to brain (Chronic) Metastatic renal cell carcinoma to lung (Chronic) Cancer treatment started (Chronic ~06/2018) Type 2 diabetes mellitus (Chronic ~2009) Renal cell carcinoma (Chronic ~06/2018) Medical History Abdominal pain (Chronic) Adrenal nodule (Chronic) Left 1.6cm with retroperitoneal adenopathy Attempted suicide (Chronic) Blood in urine (Chronic) Cancer treatment started (Chronic ~06/2018) Contusion of right thigh (Chronic) Diabetes mellitus type II, uncontrolled (Chronic) Diabetic peripheral neuropathy (Chronic) Dyslipidemia (Chronic) Essential hypertension, benign (Chronic) Eustachian tube disorder (Chronic) Gross hematuria (Chronic) Hand tingling (Chronic) Hearing loss (Chronic) Hearing loss in right ear (Chronic) Heartburn (Chronic) Hemoptysis (Chronic) Hydronephrosis of right kidney (Chronic) Hypercalcemia (Chronic) Hyperlipidemia (Chronic) Leg pain, right (Chronic) Lentigo (Chronic) Lung mass (Chronic) Metastatic renal cell carcinoma (Chronic) Microalbuminuria (Chronic) Moderate major depression (Chronic) Nasal congestion (Chronic) Nasal polyp (Chronic) Nasal septal perforation (Chronic) Neck pain (Chronic) Nicotine dependence (Chronic) Nodule of lower lobe of left lung (Chronic) 2 Nodule of upper lobe of right lung (Chronic) Obesity, morbid (Chronic) Other benign neoplasm of skin of trunk (Chronic) Other testicular hypofunction (Chronic) Pulmonary embolism (Chronic) Renal cell carcinoma (Chronic ~06/2018) Right renal mass (Chronic 06/19/18) Very large right sided renal mas, 15 x 12 x 13 cm Seborrheic keratosis (Chronic) Shortness of breath (Chronic) Skin tag (Chronic) Splenomegaly (Chronic) 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) Type 2 diabetes mellitus (Chronic ~2009) Urinary urgency (Chronic) Vasomotor rhinitis (Chronic) Venous obstruction (Chronic) Surgical History History of brain surgery (Chronic ~10/2019) for tumor History of lung biopsy (Chronic ~06/2018) History of oral surgery (Chronic) Impacted tooth removal History of placement of ear tubes (Chronic) History of surgical procedure (Chronic ~09/2019) Power Port Placement History of toe surgery (Chronic) Right great toe ingrown toenail-biopsy Family History Father Cancer High blood pressure Emphysema, unspecified Bladder cancer Obesity Family/Other Cancer All Grandparents Diabetes Maternal cousin Mother High blood pressure Grandmother Ovarian cancer Paternal Stomach cancer Paternal Diabetes Maternal great great Grandfather Bone cancer Paternal Brain cancer Maternal Esophageal cancer Maternal Other Family history of malignant neoplasm of prostate Social History marital status: single smoking status: Current every day smoker alcohol intake frequency: does not drink substance use type: does not use MEDS/ALLERGIES Home Medications and Allergies Home Medications Medication Instructions Recorded Confirmed Type gabapentin 300 mg capsule 300 mg PO QHS 12/31/19 08/05/20 History hydromorphone 4 mg tablet 4 mg PO Q6H PRN 12/31/19 08/05/20 History methocarbamol 750 mg tablet 750 mg PO TID PRN 12/31/19 08/05/20 History axitinib 5 mg tablet 5 mg PO BID tab 07/08/20 08/05/20 History escitalopram oxalate 5 mg tablet 5 mg PO QDAY tab 07/08/20 08/05/20 History omeprazole 20 mg capsule,delayed 20 mg PO QDAY cap 07/08/20 08/05/20 History release varenicline [Chantix Continuing 1 mg PO BID 08/06/20 08/06/20 History Month Box] Allergies Allergy/AdvReac Type Severity Reaction Status Date / Time No Known Drug Allergies Allergy Verified 08/05/20 10:09 Physical Examination Vital Signs Vital signs: Temp Pulse Resp BP Pulse Ox 97.2 F 78 18 102/68 98 08/06/20 08:00 08/06/20 08:00 08/06/20 08:00 08/06/20 08:00 08/06/20 08:00 General Appearance General appearance: chronically ill and fatigue Respiratory Respiratory: clear Cardiovascular Cardiology: edema, regular rate and regular rhythm Gastrointestinal Gastrointestinal: no tenderness Integumentary Integumentary: no rash and warm and dry Neurologic Neurologic: no focal deficit and alert and oriented x3 Musculoskeletal Musculoskeletal: no erythema and no cyanosis Psychiatric Psychiatric: mood/affect appropriate and cooperative Results Lab Results Result Diagrams: 08/06/20 05:19 08/06/20 05:19 Lab results: Most recent lab results Calcium 10.8 mg/dl (8.6-10.4) H 08/06/20 05:19 Phosphorus 2.8 mg/dL (2.7-4.5) 08/06/20 05:19 Magnesium 2.4 mg/dL (1.6-2.5) 08/06/20 05:19 A/P Assessment and plan (1) Acute on chronic renal failure: Assessment and plan: Timi Ornelas is a 49-year-old male with diabetes mellitus type II, hypertension, history of metastatic renal cell carcinoma admitted on 08/05/20. Right renal cell carcinoma was initially diagnosed on 06/28/2018. It caused thrombosis of the inferior vena cava and the renal vein and metastatic to the brain and lung. He had brain surgery for partial resection on 11/12/2019. He received radiation treatment through 01/14/2020. He has been receiving chemotherapy from the [facility]. He was initially placed on sunitinib followed by nivolumab/ipilimumab, cabozantinib then axitinib. The patient was sent to ED for dehydration on 08/04/20 from the cancer center and received IVF (1.5 L) and discharged home. He felt dizzy and lightheaded and fell at home and presented back to ED. His work up showed acute kidney injury, left lower lobe infiltrate with lactic acidosis, elevated white blood cell count and procalcitonin. He noticed bilateral leg edema in the past 2 weeks. Acute kidney injury on chronic kidney disease stage 3, present on arrival. There is no recent history of IV contrast administration or NSAID use. Intravascular volume depletion unlikely. Hypercalcemia, sepsis, chemotherapy adverse reaction and IVC thrombosis considered as potential etiology. Work up: Urinalysis on 08/06/20: Yellow, Clear, pH 5.0, SG 1.012, protein negative, blood negative, leukocyte esterase negative. Urine Sodium on 08/06/20: 90 mmol/L. Renal US on 08/06/20: Large (20 cm) mass replacing the entire right kidney. It is suspicious for primary renal cell carcinoma. Left kidney and urinary bladder are normal. Progress: Serum creatinine increased from baseline 1.4 to 1.8 on 08/04/20 and stayed the same in the past 2 days. Urine output: 2150 ml reported in the past 24 hours. Hypercalcemia improved. Recommendations/Plan: No urgent acute hemodialysis need. MRA abdomen wo contrast requested for suspected IVC thrombosis. Avoid NSAIDs, ODALIS/ARB, Metformin, nephrotoxic medications and IV contrast. Monitor BMP and urine output. Status: Acute Time Spent With Patient Time: Total time spent is greater than 50% in coordination of care (as documented) at patient's floor/unit and/or counseling patient:
[2020-08-06] MEDS ORDERED: GADOBENATE DIMEGLUMINE 20 ML/VIAL IV ONE (13:51)
--- NOTE | 2020-08-06 15:02 | Magnetic Resonance Report ---
CLINICAL INFORMATION: Recent closed head injury. Apparently, patient had a prior left occipital craniotomy with resection solitary metastasis from renal cell carcinoma. COMPARISON: Head CT 08/05/2020 TECHNIQUE:Sagittal T1 FLAIR, axial T1 FLAIR, T2 FLAIR propeller, T2 propeller, gradient, diffusion, ADC and coronal T2 weighted images were acquired. Post Magnevist T1 axial and coronal images were also obtained FINDINGS: Left occipital craniotomy changes noted. A 2.4 cm region of encephalomalacia, in the underlying occipital lobe, is surrounded by a thin enhancing capsule. Within the inferior aspect of the encephalomalacia, there is a 2.1 cm nonenhancing solid component.. A large region of the surrounding gliosis or, less likely, edema permeats throughout the remaining occipital lobe. The ventricles and sulci fissures and cisterns are symmetrically enlarged compatible with mild atrophy. The 2 mm focus of chronic ischemia the right frontal white matter. Signal void in intracerebral arteries, extra-axial cranial nerves, pituitary and orbits are normal. Small of fluid noted in the right mastoid air cells bilateral mastoiditis. IMPRESSION: 1. 2.4 cm region of postsurgical encephalomalacia in the left occipital lobe with surrounding gliosis extending throughout the remaining occipital white matter. Findings are compatible with postsurgical tumor resection. There is no definite evidence of recurrent tumor; however, comparison with older postoperative MRIs would be helpful to ensure stability. Interpreted and Authenticated by: Norman Torres 08/06/20
[2020-08-06] MEDS: ONDANSETRON 4 MG/2 ML VIAL IV PRN (19:39)
[2020-08-06] MEDS: GABAPENTIN 300 MG CAPSULE PO SCH (20:16)
[2020-08-07] MEDS: 0.9 % SODIUM CHLORIDE 10 ML SYRINGE IV SCH ×3 (05:57→20:47)
[2020-08-07] MEDS: PIPERACILLIN SODIUM/TAZOBACTAM 3.375 GM in DEXTROSE 5% IN WATER 50 ML IV SCH (05:58)
[2020-08-07] MEDS: HYDROmorphone 2 MG TABLET PO PRN ×3 (05:58→17:56)
[2020-08-07 06:45] LABS: Basophils # (Auto) 0.05 K/mcL (0.00-0.30); Basophils % (Auto) 0.5 % (0.0-2.0); Eosinophils # (Auto) 0.24 K/mcL (0.00-0.70); Eosinophils % (Auto) 2.4 % (0.0-7.0); Granulocytes % (Auto) 77.8 % (38.0-78.0); Hematocrit 26.6 % (40.1-51.0); Hemoglobin 7.6 g/dL (13.7-17.5); Lymphocytes # (Auto) 0.87 K/mcL (1.50-4.80); Lymphocytes % (Auto) 8.5 % (15.5-49.0); Mean Cell Volume 85.5 fL (80.0-100.0); Mean Corpuscular HGB Conc 28.6 g/dL (31.0-36.0); Mean Platelet Volume 9.8 fL (7.4-10.4); Monocytes % (Auto) 10.8 % (1.0-12.0); Platelet Count 423 K/mcL (140-440); RBC 3.11 M/mcL (4.63-6.08); Red Cell Distribution Width 19.6 % (11.5-14.5); WBC 10.2 K/mcL (4.50-11.00)
[2020-08-07] MEDS: INSULIN LISPRO 1 UNIT/0.01 ML UNIT SQ SCH ×4 (07:05→20:47)
[2020-08-07] MEDS: ENOXAPARIN 40 MG/0.4 ML SYRINGE SQ SCH (07:05)
[2020-08-07] MEDS: AXITINIB 5 MG PO SCH ×2 (07:06→20:47)
[2020-08-07 07:19] LABS: ALT/SGPT 11 U/l (0-40); AST/SGOT 21 U/l (0-37); Albumin 2.4 gm/dL (3.2-5.2); Albumin/Globulin Ratio 0.6 (1.0-2.3); Alkaline Phosphatase 140 U/L (39-117); Bilirubin,Direct 0.3 mg/dL (0.0-0.3); Bilirubin,Total 0.5 mg/dL (0.0-1.0); Blood Urea Nitrogen 18 mg/dl (6-20); Calcium 9.8 mg/dl (8.6-10.4); Carbon Dioxide 23 mmol/L (22-30); Chloride 103 mmol/L (96-108); Glomerular Filtration Rate 46; Glucose 91 mg/dL (70-105); Lactate Dehydrogenase 191 U/L (94-250); Phosphorous 2.7 mg/dL (2.7-4.5); Triglycerides 97 mg/dl (<150); Uric Acid 6.3 mg/dL (2.5-8.0)
--- NOTE | 2020-08-07 07:44 | Internal Med Progress Note ---
SUBJECTIVE Subjective Patient information: Note initiated : 08/07/20 at 7:38 am Service Date, if different from initiated Date: [] Patient: Timi Amaral 49 y/o M admitted on 08/05/20 for Fall, hit head. Chief Complaint: [] Interval history: Leukocytosis improved.History of present illness: Mr. Amaral is a 49 year Who presented ED yesterday at the request of his cancer care center due to some labs that appear to show him being dehydrated. Went to the ED and received IV fluid. Was sent home. During middle night he went to go the bathroom and felt dizzy and lightheaded and fell. He denies loss of consciousness although he did hit his head. Was able to get up right away and get went to his bed. He and family called the cancer center in the morning they told to come to the ED. On evaluation the ED appear to be in acute kidney injury. And chest x-ray showed left lower lobe infiltrate. Lactate 2.0. An elevated white blood cell count. As well as procalcitonin. Does have a history of stage IV kidney cancer with mets to the brain. Had a brain surgery in October. Has not been on a recent chemo medication and is not felt well since then. He has had days where he is felt confused. Per family members and himself he was confused this morning. Seems to be cleared up at this time. This post to get follow-up CT chest abdomen pelvis and brain MRI in the next couple weeks prior to his appointment. Denies any coughing or shortness of breath at this time. Yesterday he felt normal although again has not felt great since the medication but no acute changes in how he fell yesterday as well as today. Just feels lightheaded if he gets up too fast. No headaches or vision changes. 08/06 Feeling a little better today. Has little bit of lower abdominal crampy pain but otherwise no complaints. Leukocytosis improved. 08/07 States poor sleep last night. Has occasional back pain. Takes pain medication chronically at home. Seen by nephrology. Pending MRI of the abdomen. Review of Systems: denies headache/fever/chills/nausea/vomiting/chest pain/cough/dyspnea/diarrhea. Otherwise see above. Constitutional Vitals: Vital Signs Temp Pulse Resp BP Pulse Ox 98.7 F 82 18 102/66 93 08/07/20 06:59 08/07/20 06:59 08/07/20 06:59 08/07/20 06:59 08/07/20 06:59 Period Temp Pulse Resp BP Sys/Bah Pulse Ox Last 24 Hr 97.2 F-98.8 F 78-85 16- 102-114/66-73 93-98 Intake and Output 08/06/20 08/07/20 08/07/20 21:59 05:59 13:59 Intake Total 1770 850 50 Output Total 1525 1700 500 Balance 245 -850 -450 Weight 121.2 kg Intake & Output: Intake & Output 08/06/20 08/07/20 08/07/20 21:59 05:59 13:59 Intake Total 1770 850 50 Output Total 1525 1700 500 Balance 245 -850 -450 Weight 121.2 kg Intake: IV 1050 50 50 Sodium Chloride 0.9% 1,000 ml @ 1000 75 mls/hr IV .[id number] MELISSA Rx#: [id number] Zosyn 3.375 gm In Dextrose 5% 50 50 50 in Water 50 ml @ 100 mls/hr IV Q6H MELISSA Rx#:[id number] Oral 720 800 Output: Void Amount 1525 1700 500 Other: Meal Dinner Percent of Meal Consumed 75% Feeding Ability Independent Urine Appearance Clear Clear Clear Urine Color Bright Yellow Bright Yellow Dark Cyndie Urine Odor Normal Normal Exam: General: Alert, Awake, Eyes/N/T: EOMI, Head/Neck: neck supple, CV: RRR, No murmurs, Pulm: Mild left-sided rhonchi right clear , no wheezing Abd: soft, nontender, +BS x4 Ext: no clubbing/cyanosis/edema Neuro: Alert, no focal deficits, moves all extremities, Skin: warm/dry OBJ DATA Labs CBC & Chem 7: 08/07/20 04:51 08/07/20 04:51 Labs: Abnormal Lab Results 08/07/20 08/07/20 08/06/20 04:51 04:51 05:19 WBC RBC 3.11 L Hgb 7.6 L Hct 26.6 L MCH 24.4 L MCHC 28.6 L RDW 19.6 H Plt Count Gran % Lymph % (Auto) 8.5 L Gran # Lymph # (Auto) 0.87 L [place] # (Auto) 1.10 H Seg Neutrophils % Lymphocytes % Platelet Estimate RBC Morphology Hypochromasia Anisocytosis BUN 22 H Creatinine 1.7 H 1.8 H Glucose 120 H Calcium 10.8 H GGT 71 H Alkaline Phosphatase 140 H 133 H Albumin 2.4 L 2.7 L Globulin 4.0 H 4.0 H Albumin/Globulin Ratio 0.6 L 0.7 L 08/06/20 08/05/20 08/05/20 05:19 10:58 10:58 WBC 14.0 H RBC 3.31 L Hgb 8.0 L Hct 28.5 L MCH 24.2 L MCHC 28.1 L RDW 19.5 H Plt Count 462 H Gran % Lymph % (Auto) Gran # Lymph # (Auto) [place] # (Auto) Seg Neutrophils % 86 H 92 H Lymphocytes % 6 L 6 L Platelet Estimate Increased A Increased A RBC Morphology Abnorm A Hypochromasia 1+ A 2+ A Anisocytosis 1+ A 1+ A BUN Creatinine 1.8 H Glucose 180 H Calcium 12.4 H GGT Alkaline Phosphatase 157 H Albumin 2.8 L Globulin 4.7 H Albumin/Globulin Ratio 0.6 L 08/05/20 10:58 WBC 19.6 H RBC 3.70 L Hgb 9.0 L Hct 31.4 L MCH 24.3 L MCHC 28.7 L RDW 19.4 H Plt Count 511 H Gran % 92.1 H Lymph % (Auto) 4.5 L Gran # 18.11 H Lymph # (Auto) 0.88 L [place] # (Auto) Seg Neutrophils % Lymphocytes % Platelet Estimate RBC Morphology Hypochromasia Anisocytosis BUN Creatinine Glucose Calcium GGT Alkaline Phosphatase Albumin Globulin Albumin/Globulin Ratio Meds: Medications Acetaminophen (Tylenol) 650 mg PO Q6HP PRN PRN Reason: PAIN/FEVER > 101 Albuterol/Ipratropium (Duoneb) 3 ml NEB Q4HP PRN PRN Reason: Shortness Of Breath Dextrose (Dextrose 50%) 0 ml IV UD PRN PRN Reason: Hypoglycemia Diagnostic Test (Pha) (Accu-Chek) 1 each FS ACHS [facility] Last Admin: 08/07/20 07:05 Dose: Not Given Documented by: Docusate Sodium (Colace) 100 mg PO BID [facility] Last Admin: 08/06/20 20:16 Dose: 100 mg Documented by: Enoxaparin Sodium (Lovenox) 40 mg SQ DAILY [facility] Last Admin: 08/07/20 07:05 Dose: Not Given Documented by: Gabapentin (Neurontin) 300 mg PO QHS [facility] Last Admin: 08/06/20 20:16 Dose: 300 mg Documented by: Glucose (Insta-Glucose) 15 gm PO PRN PRN PRN Reason: Hypoglycemia Hydromorphone HCl (Dilaudid) 4 mg PO Q6HP PRN; Protocol PRN Reason: Per Pain Protocol Last Admin: 08/07/20 05:58 Dose: 4 mg Documented by: Potassium Chloride 40 meq/ (Dextrose) 520 mls @ 130 mls/hr IV UD PRN PRN Reason: Potassium < 3 Magnesium Sulfate (Magnesium Sulfate) 2 gm in 50 mls @ 50 mls/hr IV UD PRN PRN Reason: Magnesium </= 1.6 Piperacillin Sod/Tazobactam (Sod 3.375 gm/ Dextrose) 50 mls @ 100 mls/hr IV Q6H [facility]; Protocol Last Infusion: 08/07/20 06:28 Dose: Infused Documented by: Insulin Human Lispro (Humalog) 0 unit SQ ACHS [facility]; Protocol Last Admin: 08/07/20 07:05 Dose: Not Given Documented by: Methocarbamol (Robaxin) 750 mg PO TID [facility] Last Admin: 08/06/20 20:16 Dose: 750 mg Documented by: Metoclopramide HCl (Reglan) 10 mg IV Q6HP PRN PRN Reason: Nausea And Vomiting Omeprazole (Prilosec) 20 mg PO QDAY [facility] Last Admin: 08/06/20 09:41 Dose: 20 mg Documented by: Ondansetron HCl (Zofran) 4 mg IV Q4HP PRN PRN Reason: Nausea And Vomiting Last Admin: 08/06/20 19:39 Dose: 4 mg Documented by: Axitinib [Inlyta] 5 (Mg Cap) 1 dose PO BID [facility] Last Admin: 08/07/20 07:06 Dose: Not Given Documented by: Polyethylene Glycol (Miralax) 17 gm PO DAILYP PRN PRN Reason: Constipation Potassium Chloride (Kdur) 40 meq PO UD PRN PRN Reason: Potssium is 3-3.5 Potassium Chloride (Kdur) 40 meq PO UD PRN PRN Reason: Potassium < 3 Senna (Senokot) 2 tab PO DAILYP PRN PRN Reason: Constipation Sodium Chloride (Saline Flush) 10 ml IV Q8 [facility]ELISSA Last Admin: 08/07/20 05:57 Dose: 10 ml Documented by: A/P Narrative A/P Narrative: A: *ABIOLA on CKD III (?baseline): -renal u/s with mild right hydronephrosis caused by mass -1.7<1.8<1.8 *PNA: -on room air -leukocytosis resolved, BC neg *Volume depletion: resolved *Hypercalcemia: volume depletion vs metastatic CA, resolved *Kidney cancer stage IV with mets to the brain: -Brain MRI no new mets and new changes *Anemia, chronic: *Depression: *GERD: *Tobacco abuse: *DM: *Confusion: Intermittent and has been occurring since brain surgery is sounds like -noncontrast CT brain no acute * P: -Nephro following, pending MRI abdomen -Pending SC -IV antibiotics -is supposed to get f/u ct c/a/p prior to appointment with cancer center -SSI, hold metformin -PT/OT -Smoking cessation counseling -ppx: Lovenox/home PPI DNR Time Spent With Patient Time: Total time spent is greater than 50% in coordination of care (as documented) at patient's floor/unit and/or counseling patient:
--- NOTE | 2020-08-07 08:27 | Nephrology Progress Note ---
SUBJECTIVE Subjective Patient information: Note initiated : 08/07/20 at 8:22 am Patient: Timi Amaral 49 y/o M admitted on 08/05/20 for Fall, hit head. Chief Complaint: Weakness Pertinent ROS: Weakness No Stevens catheter No dysuria or hematuria Bilateral trace lower extremity edema No shortness of breath Constitutional Vitals: Vital Signs Temp Pulse Resp BP Pulse Ox 98.7 F 82 18 102/66 93 08/07/20 06:59 08/07/20 06:59 08/07/20 06:59 08/07/20 06:59 08/07/20 06:59 Period Temp Pulse Resp BP Sys/Bah Pulse Ox Last 24 Hr 97.7 F-98.8 F 80-85 16-20 102-114/66-73 93-98 Intake and Output 08/06/20 08/07/20 08/07/20 21:59 05:59 13:59 Intake Total 1770 850 50 Output Total 1525 1700 500 Balance 245 -850 -450 Weight 267 lb 3.2 oz Intake & Output: Intake & Output 08/06/20 08/07/20 08/07/20 21:59 05:59 13:59 Intake Total 1770 850 50 Output Total 1525 1700 500 Balance 245 -850 -450 Weight 267 lb 3.2 oz Intake: IV 1050 50 50 Sodium Chloride 0.9% 1,000 ml @ 1000 75 mls/hr IV .[id number] MELISSA Rx#: [id number] Zosyn 3.375 gm In Dextrose 5% 50 50 50 in Water 50 ml @ 100 mls/hr IV Q6H MELISSA Rx#:[id number] Oral 720 800 Output: Void Amount 1525 1700 500 Other: Meal Dinner Percent of Meal Consumed 75% Feeding Ability Independent Urine Appearance Clear Clear Clear Urine Color Bright Yellow Bright Yellow Dark Cyndie Urine Odor Normal Normal General appearance: cooperative and no acute distress Head Head exam: Present normal inspection Eye Eye exam: Present normal appearance ENT ENT exam: Present mucous membranes moist Respiratory Respiratory exam: Absent respiratory distress Cardiovascular Cardiovascular exam: Present normal rate and rhythm GI/Abdominal GI/Abdominal exam: Present soft; Absent tenderness Extremities Exam Extremities exam: Present pedal edema; Absent joint swelling Neurological Exam Neurological exam: Present alert and oriented X3 Psychiatric Psychiatric exam: Present normal affect and normal mood Skin Skin exam: Present warm; Absent rash A/P Assessment and plan (1) Acute on chronic renal failure: Assessment and plan: Timi Ornelas is a 49-year-old male with diabetes mellitus type II, hypertension, history of metastatic renal cell carcinoma admitted on 08/05/20. Right renal cell carcinoma was initially diagnosed on 06/28/2018. It caused thrombosis of the inferior vena cava and the renal vein and metastatic to the brain and lung. He had brain surgery for partial resection on 11/12/2019. He received radiation treatment through 01/14/2020. He has been receiving chemotherapy from the [facility]. He was initially placed on sunitinib followed by nivolumab/ipilimumab, cabozantinib then axitinib. The patient was sent to ED for dehydration on 08/04/20 from the cancer center and received IVF (1.5 L) and discharged home. He felt dizzy and lightheaded and fell at home and presented back to ED. His work up showed acute kidney injury, left lower lobe infiltrate with lactic acidosis, elevated white blood cell count and procalcitonin. He noticed bilateral leg edema in the past 2 weeks. Acute kidney injury on chronic kidney disease stage 3, present on arrival. There is no recent history of IV contrast administration or NSAID use. Intravascular volume depletion unlikely. Hypercalcemia, sepsis, chemotherapy adverse reaction and IVC thrombosis considered as potential etiology. Work up: Urinalysis on 08/06/20: Yellow, Clear, pH 5.0, SG 1.012, protein negative, blood negative, leukocyte esterase negative. Urine Sodium on 08/06/20: 90 mmol/L. Renal US on 08/06/20: Large (20 cm) mass replacing the entire right kidney. It is suspicious for primary renal cell carcinoma. Left kidney and urinary bladder are normal. Progress: Serum creatinine decreased from 1.8 to 1.7 in the past 24 hours. Baseline serum creatinine 1.4. Urine output: 3,875 ml reported in the past 24 hours. Hypercalcemia improved. Recommendations/Plan: No urgent acute hemodialysis need. MRA abdomen wo contrast requested for lower abdominal pain and suspected IVC thrombosis. Avoid NSAIDs, ODALIS/ARB, Metformin, nephrotoxic medications and IV contrast. Monitor BMP and urine output. Status: Acute Time Spent With Patient Time: Total time spent is greater than 50% in coordination of care (as documented) at patient's floor/unit and/or counseling patient:
[2020-08-07] MEDS: OMEPRAZOLE 20 MG CAPSULE PO SCH (08:29)
[2020-08-07] MEDS: METHOCARBAMOL 750 MG TABLET PO SCH ×3 (08:29→20:47)
[2020-08-07] MEDS: DOCUSATE SODIUM 100 MG CAPSULE PO SCH ×2 (08:30→20:46)
--- NOTE | 2020-08-07 11:14 | Discharge Summary ---
Discharge Provider Provider Patient information: Note initiated : 08/07/20 at 11:12 am Service Date, if different from initiated Date: [] Patient: Timi Amaral 49 y/o M admitted on 08/05/20 for Fall, hit head. Chief Complaint: [] Date of admission: 08/05/20 15:21 Discharge date: 08/08/20 Primary care physician: Norman Kaiser DO Consults: 08/05/20 Consult to Physician [CONS] Stat Comment: Consulting Provider: Newton Jernigan Reason For Exam: Physician to Consult 08/06/20 13:17 Consult to Physician [CONS] Routine Comment: abiola, h/o kidney cancer Consulting Provider: Raj Oseguera Reason For Exam: Physician to Consult Discharge Meds Discharge Medications Home Medications gabapentin 300 mg capsule 300 mg PO QHS 12/31/19 [History Confirmed 08/05/20 Last Taken Unknown] hydromorphone 4 mg tablet 4 mg PO Q6H PRN 12/31/19 [History Confirmed 08/05/20 Last Taken Unknown] methocarbamol 750 mg tablet 750 mg PO TID PRN 12/31/19 [History Confirmed 08/05/20 Last Taken Unknown] axitinib 5 mg tablet 5 mg PO BID tab 07/08/20 [History Confirmed 08/05/20 Last Taken Unknown] escitalopram oxalate 5 mg tablet 5 mg PO QDAY tab 07/08/20 [History Confirmed 08/05/20 Last Taken Unknown] omeprazole 20 mg capsule,delayed release 20 mg PO QDAY cap 07/08/20 [History Confirmed 08/05/20 Last Taken Unknown] Chantix Continuing Month Box 1 mg PO BID 08/06/20 [History Confirmed 08/06/20 Last Taken Unknown] Januvia 100 mg QPM 08/07/20 [History Confirmed 08/07/20 Last Taken Unknown] doxycycline hyclate 100 mg PO BID #4 tab 08/07/20 [Rx Last Taken Unknown] metformin 1,000 mg PO BID 08/07/20 [History Confirmed 08/07/20 Last Taken Unknown] rivaroxaban [Xarelto] See Rx Instructions .ROUTE .COMPLEX #90 tab 08/08/20 [Rx Last Taken Unknown] COURSE Hospital Course Hospital course: History of present illness: Mr. Amaral is a 49 year Who presented ED yesterday at the request of his cancer care center due to some labs that appear to show him being dehydrated. Went to the ED and received IV fluid. Was sent home. During middle night he went to go the bathroom and felt dizzy and lightheaded and fell. He denies loss of consciousness although he did hit his head. Was able to get up right away and get went to his bed. He and family called the cancer center in the morning they told to come to the ED. On evaluation the ED appear to be in acute kidney injury. And chest x-ray showed left lower lobe infiltrate. Lactate 2.0. An elevated white blood cell count. As well as procalcitonin. Does have a history of stage IV kidney cancer with mets to the brain. Had a brain surgery in October. Has not been on a recent chemo medication and is not felt well since then. He has had days where he is felt confused. Per family m chauncey and himself he was confused this morning. Seems to be cleared up at this time. This post to get follow-up CT chest abdomen pelvis and brain MRI in the next couple weeks prior to his appointment. Denies any coughing or shortness of breath at this time. Yesterday he felt normal although again has not felt great since the medication but no acute changes in how he fell yesterday as well as today. Just feels lightheaded if he gets up too fast. No headaches or vision changes. 08/06 Feeling a little better today. Has little bit of lower abdominal crampy pain but otherwise no complaints. Leukocytosis improved. 08/07 States poor sleep last night. Has occasional back pain. Takes pain medication chronically at home. Seen by nephrology. Pending abdomen u/s 08/11 Ultra sound showing partial thrombus in the IVC. Patient started on anticoagulation Lovenox initially and transition to Xarelto which he been on in the past for previous PE. Doing well and stable for discharge A: *ABIOLA on CKD III (?baseline): -renal u/s with mild right hydronephrosis caused by mass -abd u/s with IVC thrombosis -1.5<1.7<1.8<1.8 *IVC partial thrombosis: *PNA: *Volume depletion: resolved *Hypercalcemia: volume depletion vs metastatic CA, resolved *Kidney cancer stage IV with mets to the brain: -Brain MRI no new mets and new changes *Anemia, chronic: *Depression: *GERD: *Tobacco abuse: *DM: *Confusion: Intermittent and has been occurring since brain surgery is sounds like -noncontrast CT brain no acute Discharge diagnosis: Chronic kidney disease pneumonia hypercalcemia Secondary discharge diagnosis: Metastatic kidney cancer to brain depression anemia tobacco abuse diabetes Time Spent with Patient Time attestation: Total time spent providing and/or coordinating discharge services: Time spent: Greater than 30 minutes EXAM Constitutional Vitals: Temp Pulse Resp BP Pulse Ox 98.7 F 82 18 102/66 93 08/07/20 06:59 08/07/20 06:59 08/07/20 06:59 08/07/20 06:59 08/07/20 06:59 Discharge Data Data Completed and Pending Labs on day of discharge: Labs from last 24 hours 08/07/20 08/07/20 04:51 04:51 WBC 10.2 RBC 3.11 L Hgb 7.6 L Hct 26.6 L MCV 85.5 MCH 24.4 L MCHC 28.6 L RDW 19.6 H Plt Count 423 MPV 9.8 Gran % 77.8 Lymph % (Auto) 8.5 L [place] % (Auto) 10.8 Eos % (Auto) 2.4 Baso % (Auto) 0.5 Gran # 7.94 Lymph # (Auto) 0.87 L [place] # (Auto) 1.10 H Eos # (Auto) 0.24 Baso # (Auto) 0.05 Sodium 140 Potassium 3.8 Chloride 103 Carbon Dioxide 23 Anion Gap 14.0 BUN 18 Creatinine 1.7 H GFR Calculation 46 Glucose 91 Uric Acid 6.3 Calcium 9.8 Phosphorus 2.7 Magnesium 2.4 Total Bilirubin 0.5 Direct Bilirubin 0.3 GGT 71 H AST 21 ALT 11 Alkaline Phosphatase 140 H Lactate Dehydrogenase 191 Total Protein 6.4 Albumin 2.4 L Globulin 4.0 H Albumin/Globulin Ratio 0.6 L Triglycerides 97 Preliminary micro results at discharge 08/05/20 12:00 Blood Culture - Preliminary Blood 08/05/20 11:33 Blood Culture - Preliminary Blood Discharge Plan Patient/Caregiver Discharge Instructions Activity: increase activity as tolerated Diet: Consistent Carbohydrate Activity Restrictions/Additional Instructions: Follow-up with your cancer center Prescriptions: New doxycycline hyclate 100 mg tablet 100 mg PO BID Qty: 4 RF: 0 Xarelto 15 mg Tablet See Rx Instructions .ROUTE .COMPLEX Qty: 90 RF: 0 Continued hydromorphone 4 mg tablet 4 mg PO Q6H PRN (Reason: Pain) RF: 0 methocarbamol 750 mg tablet 750 mg PO TID PRN (Reason: Muscle Spasm) RF: 0 gabapentin 300 mg capsule 300 mg PO QHS RF: 0 axitinib 5 mg tablet 5 mg PO BID RF: 0 omeprazole 20 mg capsule,delayed release(DR/EC) 20 mg PO QDAY RF: 0 escitalopram oxalate 5 mg tablet 5 mg PO QDAY RF: 0 Chantix Continuing Month Box 1 mg Tablet 1 mg PO BID RF: 0 No Action metformin 1,000 mg Tablet Extended Release 24hr 1,000 mg PO BID RF: 0 Januvia 100 mg QPM RF: 0 Follow Up Plan Follow up with: Norman Kaiser DO [Primary Care Provider] - Raj Oseguera MD [Physician] - Patient Disposition: Home, Self-Care Prognosis: Undetermined Overall status at discharge: patient is progressing back to baseline Discharge Orders: Discharge Order (Routine); Ordered 08/08/20 Ordered By: Newton Jernigan
[2020-08-07] MEDS: cefTRIAXone 2 GM in DEXTROSE 5% IN WATER 50 ML IV SCH (11:52)
--- NOTE | 2020-08-07 18:14 | Ultrasound Report ---
CLINICAL INFORMATION: Lower abdominal pain, suspected IVC thrombus COMPARISON: None. FINDINGS: There is partial thrombus within the proximal and mid inferior vena cava. IMPRESSION: Partial thrombus in the proximal mid IVC Interpreted and Authenticated by: Norman Torres 08/07/20
[2020-08-07] MEDS: GABAPENTIN 300 MG CAPSULE PO SCH (20:47)
[2020-08-07] MEDS: ENOXAPARIN 100 MG/ML SYRINGE SQ SCH (20:56)
[2020-08-08] MEDS: HYDROmorphone 2 MG TABLET PO PRN ×2 (00:03→06:06)
[2020-08-08] MEDS: 0.9 % SODIUM CHLORIDE 10 ML SYRINGE IV SCH (04:56)
[2020-08-08 07:02] LABS: Blood Urea Nitrogen 13 mg/dl (6-20); Calcium 10.1 mg/dl (8.6-10.4); Carbon Dioxide 22 mmol/L (22-30); Chloride 102 mmol/L (96-108); Glomerular Filtration Rate 53; Glucose 99 mg/dL (70-105)
[2020-08-08] MEDS: INSULIN LISPRO 1 UNIT/0.01 ML UNIT SQ SCH (07:20)
[2020-08-08] MEDS: AXITINIB 5 MG PO SCH (07:21)
--- NOTE | 2020-08-08 07:26 | Nephrology Progress Note ---
SUBJECTIVE Subjective Patient information: Note initiated : 08/08/20 at 7:25 am Patient: Timi Amaral 49 y/o M admitted on 08/05/20 for Fall, hit head. Chief Complaint: Weakness Pertinent ROS: Weakness Edema resolved No hematuria/dysuria Constitutional Vitals: Vital Signs Temp Pulse Resp BP Pulse Ox 97.3 F 88 16 112/71 98 08/08/20 03:35 08/08/20 03:35 08/08/20 03:35 08/08/20 03:35 08/08/20 03:35 Period Temp Pulse Resp BP Sys/Bah Pulse Ox Last 24 Hr 97.3 F-98.7 F 85-90 16-18 98-112/65-73 94-98 Intake and Output 08/07/20 08/08/20 08/08/20 21:59 05:59 13:59 Intake Total 1640 1500 Output Total 1550 1375 600 Balance 90 125 -600 Weight 267 lb 8 oz Intake & Output: Intake & Output 08/07/20 08/08/20 08/08/20 21:59 05:59 13:59 Intake Total 1640 1500 Output Total 1550 1375 600 Balance 90 125 -600 Weight 267 lb 8 oz Intake: Oral 1640 1500 Output: Void Amount 1550 1375 600 Other: Meal Soda & chips 1 bag Percent of Meal Consumed 100% Feeding Ability Independent Urine Appearance Clear Clear Clear Urine Color Dark Yellow Dark Yellow Dark Yellow Urine Odor Normal Normal General appearance: cooperative and no acute distress Head Head exam: Present normal inspection Eye Eye exam: Present normal appearance ENT ENT exam: Present mucous membranes moist Respiratory Respiratory exam: Absent respiratory distress Cardiovascular Cardiovascular exam: Present normal rate and rhythm GI/Abdominal GI/Abdominal exam: Present soft; Absent tenderness Extremities Exam Extremities exam: Absent joint swelling and pedal edema Neurological Exam Neurological exam: Present alert and oriented X3 Psychiatric Psychiatric exam: Present normal affect and normal mood Skin Skin exam: Present warm; Absent rash A/P Assessment and plan (1) Acute on chronic renal failure: Assessment and plan: Timi Ornelas is a 49-year-old male with diabetes mellitus type II, hypertension, history of metastatic renal cell carcinoma admitted on 08/05/20. Right renal cell carcinoma was initially diagnosed on 06/28/2018. It caused thrombosis of the inferior vena cava and the renal vein and metastatic to the brain and lung. He had brain surgery for partial resection on 11/12/2019. He received radiation treatment through 01/14/2020. He has been receiving chemotherapy from the [facility]. He was initially placed on sunitinib followed by nivolumab/ipilimumab, cabozantinib then axitinib. The patient was sent to ED for dehydration on 08/04/20 from the cancer center and received IVF (1.5 L) and discharged home. He felt dizzy and lightheaded and fell at home and presented back to ED. His work up showed acute kidney injury, left lower lobe infiltrate with lactic acidosis, elevated white blood cell count and procalcitonin. He noticed bilateral leg edema in the past 2 weeks. Acute kidney injury on chronic kidney disease stage 3, present on arrival. There is no recent history of IV contrast administration or NSAID use. Intravascular volume depletion unlikely. Hypercalcemia, sepsis, chemotherapy adverse reaction and IVC thrombosis considered as potential etiology. Work up: Urinalysis on 08/06/20: Yellow, Clear, pH 5.0, SG 1.012, protein negative, blood negative, leukocyte esterase negative. Urine Sodium on 08/06/20: 90 mmol/L. Renal US on 08/06/20: Large (20 cm) mass replacing the entire right kidney. It is suspicious for primary renal cell carcinoma. Left kidney and urinary bladder are normal. Limited Abdominal US on 08/07/20: Partial thrombus in the proximal mid IVC Progress: Serum creatinine decreased from 1.7 to 1.5 in the past 24 hours. Baseline serum creatinine 1.4. Urine output: 4,975 ml reported in the past 24 hours. Recommendations/Plan: Partial thrombus in the proximal mid IVC being treated. Nephrology will sign off. Status: Acute Time Spent With Patient Time: Total time spent is greater than 50% in coordination of care (as documented) at patient's floor/unit and/or counseling patient:
--- NOTE | 2020-08-08 07:39 | Internal Med Progress Note ---
SUBJECTIVE Subjective Patient information: Note initiated : 08/08/20 at 7:36 am Service Date, if different from initiated Date: [] Patient: Timi Amaral 49 y/o M admitted on 08/05/20 for Fall, hit head. Chief Complaint: [] Interval history: Leukocytosis improved.History of present illness: Mr. Amaral is a 49 year Who presented ED yesterday at the request of his cancer care center due to some labs that appear to show him being dehydrated. Went to the ED and received IV fluid. Was sent home. During middle night he went to go the bathroom and felt dizzy and lightheaded and fell. He denies loss of consciousness although he did hit his head. Was able to get up right away and get went to his bed. He and family called the cancer center in the morning they told to come to the ED. On evaluation the ED appear to be in acute kidney injury. And chest x-ray showed left lower lobe infiltrate. Lactate 2.0. An elevated white blood cell count. As well as procalcitonin. Does have a history of stage IV kidney cancer with mets to the brain. Had a brain surgery in October. Has not been on a recent chemo medication and is not felt well since then. He has had days where he is felt confused. Per family members and himself he was confused this morning. Seems to be cleared up at this time. This post to get follow-up CT chest abdomen pelvis and brain MRI in the next couple weeks prior to his appointment. Denies any coughing or shortness of breath at this time. Yesterday he felt normal although again has not felt great since the medication but no acute changes in how he fell yesterday as well as today. Just feels lightheaded if he gets up too fast. No headaches or vision changes. 08/06 Feeling a little better today. Has little bit of lower abdominal crampy pain but otherwise no complaints. Leukocytosis improved. 08/07 States poor sleep last night. Has occasional back pain. Takes pain medication chronically at home. Seen by nephrology. Pending MRI of the abdomen. Review of Systems: denies headache/fever/chills/nausea/vomiting/chest pain/cough/dyspnea/diarrhea. Otherwise see above. Constitutional Vitals: Vital Signs Temp Pulse Resp BP Pulse Ox 98.5 F 85 16 110/70 96 08/08/20 07:25 08/08/20 07:25 08/08/20 07:25 08/08/20 07:25 08/08/20 07:25 Period Temp Pulse Resp BP Sys/Bah Pulse Ox Last 24 Hr 97.3 F-98.7 F 85-90 16-18 98-112/65-73 94-98 Intake and Output 08/07/20 08/08/20 08/08/20 21:59 05:59 13:59 Intake Total 1640 1500 Output Total 1550 1375 600 Balance 90 125 -600 Weight 121.336 kg Intake & Output: Intake & Output 08/07/20 08/08/20 08/08/20 21:59 05:59 13:59 Intake Total 1640 1500 Output Total 1550 1375 600 Balance 90 125 -600 Weight 121.336 kg Intake: Oral 1640 1500 Output: Void Amount 1550 1375 600 Other: Meal Soda & chips 1 bag Percent of Meal Consumed 100% Feeding Ability Independent Urine Appearance Clear Clear Clear Urine Color Dark Yellow Dark Yellow Dark Yellow Urine Odor Normal Normal OBJ DATA Labs CBC & Chem 7: 08/07/20 04:51 08/08/20 05:17 Labs: Abnormal Lab Results 08/08/20 08/07/20 08/07/20 05:17 04:51 04:51 WBC RBC 3.11 L Hgb 7.6 L Hct 26.6 L MCH 24.4 L MCHC 28.6 L RDW 19.6 H Plt Count Gran % Lymph % (Auto) 8.5 L Gran # Lymph # (Auto) 0.87 L [place] # (Auto) 1.10 H Seg Neutrophils % Lymphocytes % Platelet Estimate RBC Morphology Hypochromasia Anisocytosis BUN Creatinine 1.5 H 1.7 H Glucose Calcium GGT 71 H Alkaline Phosphatase 140 H Albumin 2.4 L Globulin 4.0 H Albumin/Globulin Ratio 0.6 L 08/06/20 08/06/20 08/05/20 05:19 05:19 10:58 WBC 14.0 H RBC 3.31 L Hgb 8.0 L Hct 28.5 L MCH 24.2 L MCHC 28.1 L RDW 19.5 H Plt Count 462 H Gran % Lymph % (Auto) Gran # Lymph # (Auto) [place] # (Auto) Seg Neutrophils % 86 H 92 H Lymphocytes % 6 L 6 L Platelet Estimate Increased A Increased A RBC Morphology Abnorm A Hypochromasia 1+ A 2+ A Anisocytosis 1+ A 1+ A BUN 22 H Creatinine 1.8 H Glucose 120 H Calcium 10.8 H GGT Alkaline Phosphatase 133 H Albumin 2.7 L Globulin 4.0 H Albumin/Globulin Ratio 0.7 L 08/05/20 08/05/20 10:58 10:58 WBC 19.6 H RBC 3.70 L Hgb 9.0 L Hct 31.4 L MCH 24.3 L MCHC 28.7 L RDW 19.4 H Plt Count 511 H Gran % 92.1 H Lymph % (Auto) 4.5 L Gran # 18.11 H Lymph # (Auto) 0.88 L [place] # (Auto) Seg Neutrophils % Lymphocytes % Platelet Estimate RBC Morphology Hypochromasia Anisocytosis BUN Creatinine 1.8 H Glucose 180 H Calcium 12.4 H GGT Alkaline Phosphatase 157 H Albumin 2.8 L Globulin 4.7 H Albumin/Globulin Ratio 0.6 L Meds: Medications Acetaminophen (Tylenol) 650 mg PO Q6HP PRN PRN Reason: PAIN/FEVER > 101 Albuterol/Ipratropium (Duoneb) 3 ml NEB Q4HP PRN PRN Reason: Shortness Of Breath Dextrose (Dextrose 50%) 0 ml IV UD PRN PRN Reason: Hypoglycemia Diagnostic Test (Pha) (Accu-Chek) 1 each FS ACHS [facility] Last Admin: 08/08/20 07:20 Dose: 1 each Documented by: Docusate Sodium (Colace) 100 mg PO BID [facility] Last Admin: 08/07/20 20:46 Dose: 100 mg Documented by: Enoxaparin Sodium (Lovenox) 100 mg SQ BID [facility] Last Admin: 08/07/20 20:56 Dose: 100 mg Documented by: Gabapentin (Neurontin) 300 mg PO QHS [facility] Last Admin: 08/07/20 20:47 Dose: 300 mg Documented by: Glucose (Insta-Glucose) 15 gm PO PRN PRN PRN Reason: Hypoglycemia Hydromorphone HCl (Dilaudid) 4 mg PO Q6HP PRN; Protocol PRN Reason: Per Pain Protocol Last Admin: 08/08/20 06:06 Dose: 4 mg Documented by: Potassium Chloride 40 meq/ (Dextrose) 520 mls @ 130 mls/hr IV UD PRN PRN Reason: Potassium < 3 Magnesium Sulfate (Magnesium Sulfate) 2 gm in 50 mls @ 50 mls/hr IV UD PRN PRN Reason: Magnesium </= 1.6 Ceftriaxone Sodium 2 gm/ (Dextrose) 50 mls @ 100 mls/hr IV DAILY [facility]; Protocol Last Infusion: 08/07/20 12:22 Dose: Infused Documented by: Insulin Human Lispro (Humalog) 0 unit SQ ACHS [facility]; Protocol Last Admin: 08/08/20 07:20 Dose: Not Given Documented by: Methocarbamol (Robaxin) 750 mg PO TID [facility] Last Admin: 08/07/20 20:47 Dose: 750 mg Documented by: Metoclopramide HCl (Reglan) 10 mg IV Q6HP PRN PRN Reason: Nausea And Vomiting Omeprazole (Prilosec) 20 mg PO QDAY [facility] Last Admin: 08/07/20 08:29 Dose: 20 mg Documented by: Ondansetron HCl (Zofran) 4 mg IV Q4HP PRN PRN Reason: Nausea And Vomiting Last Admin: 08/06/20 19:39 Dose: 4 mg Documented by: Axitinib [Inlyta] 5 (Mg Cap) 1 dose PO BID [facility] Last Admin: 08/08/20 07:21 Dose: Not Given Documented by: Polyethylene Glycol (Miralax) 17 gm PO DAILYP PRN PRN Reason: Constipation Potassium Chloride (Kdur) 40 meq PO UD PRN PRN Reason: Potssium is 3-3.5 Potassium Chloride (Kdur) 40 meq PO UD PRN PRN Reason: Potassium < 3 Senna (Senokot) 2 tab PO DAILYP PRN PRN Reason: Constipation Sodium Chloride (Saline Flush) 10 ml IV Q8 [facility] Last Admin: 08/08/20 04:56 Dose: 10 ml Documented by: A/P Narrative A/P Narrative: A: *ABIOLA on CKD III (?baseline): -renal u/s with mild right hydronephrosis caused by mass -abd u/s with IVC thrombosis -1.5<1.7<1.8<1.8 *IVC partial thrombosis: *PNA: -on room air -leukocytosis resolved, BC neg *Volume depletion: resolved *Hypercalcemia: volume depletion vs metastatic CA, resolved *Kidney cancer stage IV with mets to the brain: -Brain MRI no new mets and new changes *Anemia, chronic: *Depression: *GERD: *Tobacco abuse: *DM: *Confusion: Intermittent and has been occurring since brain surgery is sounds like -noncontrast CT brain no acute * P: -Nephro following -Anticoagulation -IV antibiotics to oral -is supposed to get f/u ct c/a/p prior to appointment with cancer center -SSI, hold metformin -PT/OT -Smoking cessation counseling -d/c planning -ppx: Lovenox/home PPI DNR Time Spent With Patient Time: Total time spent is greater than 50% in coordination of care (as documented) at patient's floor/unit and/or counseling patient:
[2020-08-08] MEDS: OMEPRAZOLE 20 MG CAPSULE PO SCH (08:37)
[2020-08-08] MEDS: DOCUSATE SODIUM 100 MG CAPSULE PO SCH (08:37)
[2020-08-08] MEDS: METHOCARBAMOL 750 MG TABLET PO SCH (08:37)
[2020-08-08] MEDS: ENOXAPARIN 100 MG/ML SYRINGE SQ SCH (08:38)
[2020-08-08] MEDS: cefTRIAXone 2 GM in DEXTROSE 5% IN WATER 50 ML IV SCH (09:10)
[2020-08-08] MEDS ORDERED: HEPARIN SODIUM,PORCINE/PF 500 UNIT/5 ML SYRINGE IV ONE (10:53)
[2020-08-08] MEDS ORDERED: RIVAROXABAN 15 MG TABLET PO SCH (17:30)
== END 2020-08-08 11:00 | disposition home or self-care (01) | DRG 682 ==
LOC: ED 10:09 → MEDSUR 15:21
PROVIDERS: ADMIT Internal Medicine; ATTEND Internal Medicine